=== PATIENT | female | born 1975 | race Caucasian/White ===

== ENCOUNTER → 2018-03-02 13:11 | Outpatient (CLI) | payer OTHER, MEDICAID, SELFPAY ==
--- NOTE | 2018-03-02 13:47 | DI.CT.S_ITS ---
PROCEDURE: CT CERVICAL SPINE WO CON INDICATIONS: neck pain and numbness in arm TECHNIQUE: Noncontrast 3 mm thick sections acquired from the skull base to the T4 level. Sagittal and coronal reformats were then constructed. For radiation dose reduction, the following was used: automated exposure control, adjustment of mA and/or kV according to patient size. COMPARISON: [facility], CR, CERVICAL SPINE 2 OR 3 VIEWS, 03/03/2010, 22:04. [facility], MR, C-SPINE W&WO CONTRAST, 07/15/2017, 7:51. FINDINGS: Image quality: Excellent. Bones: No fractures or dislocations. Visualized superior ribs are intact. Degenerative changes are seen throughout. Focal degenerative change is seen involving the left C1-C2 interface, as on series 4 image 9. There is irregularity seen in the anterior aspect of dens. Partial hemilaminectomy change can be seen on the left side at the C7 level. Soft tissues: Prevertebral soft tissues are normal in thickness. No paravertebral hematomas. No apical pneumothoraces. Mild attending groundglass opacity can be seen involving the lung apices. IMPRESSION: Irregularity is seen involving the anterior aspect of the dens. Differential diagnosis includes advanced degenerative change. There is postoperative change on the left at C7. The central canal is widely patent. Groundglass opacity can be seen within the visualized lung apices, in a dependent fashion. Differential diagnosis pulmonary edema and atypical infiltrate. Dictated by: Duarte Gibson M.D. on 03/02/2018 at 12:59 Approved by: Duarte Gibson M.D. on 03/02/2018 at 13:04
== END ==
PROVIDERS: Family Provider Physician Assistant; PCP Physician Assistant; Visit Provider Family Medicine
DX: M50.31 Other cervical disc degeneration, high cervical region (principal); R20.0 Anesthesia of skin; M25.60 Stiffness of unspecified joint, not elsewhere classified; R20.2 Paresthesia of skin
CPT/HCPCS: 72125

== ENCOUNTER → 2018-03-31 13:23 | Outpatient (CLI) | payer OTHER, MEDICAID, SELFPAY ==
--- NOTE | 2018-03-31 13:27 | DI.RAD.S_ITS ---
PROCEDURE: XR CHEST 2V INDICATIONS: Opacity TECHNIQUE: 2 views of the chest were acquired. COMPARISON: [facility], CT, CT CERVICAL SPINE WO CON, 03/02/2018, 13:16. [facility], CR, L-SPINE 2-3 VIEWS, 10/06/2012, 15:10. [facility], CR, CHEST 2 VIEW, 11/13/2015, 14:33. FINDINGS: Surgical changes and devices: None. Lungs and pleura: No pleural effusions or pneumothorax. Lungs are clear. No definite correlate to the groundglass opacities seen on the prior CT from 03/02/18 which may have represented dependent atelectasis. No pulmonary edema. Mediastinum: Mediastinal contours are normal. Heart size is normal. Bones and chest wall: No suspicious bony abnormalities. Soft tissues appear unremarkable. IMPRESSION: No acute disease. Dictated by: Tian Glass M.D. on 03/31/2018 at 16:28 Approved by: Tian Glass M.D. on 03/31/2018 at 16:30
== END ==
PROVIDERS: PCP Family Medicine; Visit Provider Family Medicine
DX: R91.8 Other nonspecific abnormal finding of lung field (principal)
CPT/HCPCS: 71046

== ENCOUNTER 2018-04-15 16:00 | Outpatient (RCR) | payer OTHER, MEDICAID, SELFPAY ==
--- NOTE | 2017-10-16 18:18 | PT.OTN ---
Addendum entered and electronically signed by Onelia Mena, PT 10/23/17 11:33: Transition note: On September 23, 2017 our therapy services consisting of Speech, Occupational, and Physical Therapy transitioned from the [employer] electronic documentation system to a new [employer] electronic documentation system.?? All documentation prior to September 23 can be found under [employer] saved data. From September 23 forward all medical record documentation will be in [employer]. Original Note: Current Diagnoses Radiculopathy, cervical region (10/16/17) Muscle weakness (generalized) (10/16/17) Abnormal posture (10/16/17) Physical Therapy Treatment Note PT-OP-A Visit Information Start: 10/16/17 14:28 Freq: Status: Active Protocol: Document 10/16/17 15:15 [facility] (Rec: 10/16/17 18:18 [facility] [email or web address]) Out-Patient Physical Therapy Visit Information Visit Information Visit Type Treatment Note Visit Note pt presents with walking boot on RLE; she fractured it on and had surgery by Dr. Geller 2 wks later. She states she will likely have a referral for her foot/ankle soon. Visit Start Time 14:30 Visit Stop Time 15:15 Total Visit Minutes 45 Visit Number 2 Number of RN PLACEMENT Visits 0 Evaluation Information Evaluation Date 09/04/17 PT-OP-C Subjective Start: 10/16/17 14:28 Freq: Status: Active Protocol: Document 10/16/17 15:15 [facility] (Rec: 10/16/17 18:18 [facility] [email or web address]) OP-PT Subjective Patient Comments Patient Comments Pt notes that her shoulder ( left) and neck have been bugging her more now that she is using crutches. Patient Reported Progress Worse PT-OP-H Neuro Start: 10/16/17 18:07 Freq: Status: Active Protocol: Document 10/16/17 15:15 [facility] (Rec: 10/16/17 18:18 [facility] [email or web address]) Sensation Evaluation Comments Summary Comments (+) tingling of LUE digits 1-3 with shoulder abduction with c/s side-bend R PT-OP-Q Treatments Start: 10/16/17 14:28 Freq: Status: Active Protocol: Document 10/16/17 15:15 [facility] (Rec: 10/16/17 18:18 [facility] [email or web address]) Therapeutic Exercises Supine Exercises 1 Supine Exercise Name Chin tuck (gentle) Side bilateral Sitting Exercises 1 Sitting Exercise Name Gentle median nerve glides Side left Manual Therapy Treatment Soft Tissue Mobilization 4 Body Location suboccipitals (bilateral) Mobilization Type Myofascial Release Intensity/Depth Moderate Body Position Supine 3 Body Location levator scapula Mobilization Type Sustained Pressure Intensity/Depth Moderate Body Position Supine Comments left 2 Body Location scalenes Mobilization Type Strumming Intensity/Depth Moderate Body Position Supine Comments left 1 Body Location upper trapezius (bilateral) Mobilization Type Sustained Pressure Intensity/Depth Moderate Body Position Supine Joint Mobilizations 1 Joint C5-C6 Direction side-glide to the R Grade II Body Position Supine Reps/Duration 16 min Comments stabilizing L shoulder; LUE in just under max tension of median nerve provocation PT-OP-R Modalities Start: 10/16/17 14:28 Freq: Status: Active Protocol: Document 10/16/17 15:15 [facility] (Rec: 10/16/17 18:18 [facility] [email or web address]) Hot Pack/Cold Pack Treatment Hot Pack Location cervical spine Patient Position Hooklying Treatment Duration (minutes) 10 Patient Tolerance Good Comments prior to manual therapy PT-OP-T Assessment and Plan Start: 10/16/17 14:28 Freq: Status: Active Protocol: Document 10/16/17 15:15 [facility] (Rec: 10/16/17 18:18 [facility] [email or web address]) Physical Therapy Assessment Assessment Summary Assessment Pt with (+) tingling of LUE digits 1-3 with shoulder abduction and side-bent R position (tension to median nerve), not aggravated by radial or ulnar nerve testing. Pt with improved shoulder abduction with combined side- bend R position of c/s from 92 degrees to 120 degrees prior to aggravation of median nerve , which indicates likely median nerve involvement in pain and good tolerance to treatment. Physical Therapy Plan Next Visit Focus/Plan Next Note Type Treatment Note Next Visit Plan cont. joint mobs as tolerated, STR, HEP for median nerve glide when able. Please Sign and Return: I have reviewed this Plan of Care and certify that the skilled therapy services above are required to meet the patient???s needs. Physician Signature Date Printed Name and Credentials Clinical Instructor Signature Printed Name and Credentials
--- NOTE | 2017-10-23 18:02 | PT.OTN ---
Current Diagnoses Radiculopathy, cervical region (10/23/17) Muscle weakness (generalized) (10/23/17) Abnormal posture (10/23/17) Physical Therapy Treatment Note PT-OP-A Visit Information Start: 10/16/17 14:28 Freq: Status: Active Protocol: Document 10/23/17 16:45 [facility] (Rec: 10/23/17 18:02 [facility] [email or web address]) Out-Patient Physical Therapy Visit Information Visit Information Visit Type Treatment Note Visit Start Time 16:00 Visit Stop Time 16:45 Total Visit Minutes 45 Visit Number 3 Number of JEWELRY CONSULTANT Visits 0 Evaluation Information Evaluation Date 09/04/17 PT-OP-C Subjective Start: 10/16/17 14:28 Freq: Status: Active Protocol: Document 10/23/17 16:45 [facility] (Rec: 10/23/17 18:02 [facility] [email or web address]) OP-PT Subjective Patient Comments Patient Comments Pt c/o L sided MCLAUGHLIN rated 10/10 prior to session, down to 5/10 after manual therapy and heat . PT-OP-H Neuro Start: 10/16/17 18:07 Freq: Status: Active Protocol: Document 10/16/17 15:15 RCC (Rec: 10/16/17 18:18 [facility] [email or web address]) Sensation Evaluation Comments Summary Comments (+) tingling of LUE digits 1-3 with shoulder abduction with c/s side-bend R PT-OP-Q Treatments Start: 10/16/17 14:28 Freq: Status: Active Protocol: Document 10/23/17 16:45 [facility] (Rec: 10/23/17 18:02 [facility] [email or web address]) Manual Therapy Treatment Soft Tissue Mobilization 4 Body Location suboccipitals (bilateral) Mobilization Type Myofascial Release Intensity/Depth Moderate Body Position Supine 3 Body Location levator scapula Mobilization Type Sustained Pressure Intensity/Depth Moderate Body Position Supine Comments bilateral 2 Body Location scalenes Mobilization Type Strumming Intensity/Depth Moderate Body Position Supine Comments bilateral 1 Body Location upper trapezius (bilateral) Mobilization Type Sustained Pressure Intensity/Depth Moderate Body Position Supine Joint Mobilizations 1 Joint C5-C6 Direction side-glide to the R Grade II Body Position Supine Reps/Duration 6 min Comments stabilizing L shoulder; LUE in just under max tension of median nerve provocation Manual Traction Cervical Body Position Hooklying Reps/Duration 30 sec on, 30 off for 10 min PT-OP-R Modalities Start: 10/16/17 14:28 Freq: Status: Active Protocol: Document 10/23/17 16:45 [facility] (Rec: 10/23/17 18:02 [facility] [email or web address]) Hot Pack/Cold Pack Treatment Hot Pack Location cervical spine Patient Position Hooklying Treatment Duration (minutes) 15 Patient Tolerance Good Comments prior to manual therapy PT-OP-T Assessment and Plan Start: 10/16/17 14:28 Freq: Status: Active Protocol: Document 10/23/17 16:45 RCC (Rec: 10/23/17 18:02 [facility] [email or web address]) Physical Therapy Assessment Assessment Summary Assessment Pt with L sided MCLAUGHLIN, likely due to tension of musculature, especially the suboccipitals. MCLAUGHLIN was decreased by 50% with manual therapy this session. Physical Therapy Plan Next Visit Focus/Plan Next Note Type Treatment Note Next Visit Plan median nerve glides for HEP if appropriate, continue chin tuck and add assisted head lift if able. Please Sign and Return: I have reviewed this Plan of Care and certify that the skilled therapy services above are required to meet the patient?s needs. Physician Signature Date Printed Name and Credentials Clinical Instructor Signature Printed Name and Credentials
--- NOTE | 2017-11-05 18:04 | PT.OTN ---
Current Diagnoses Stiffness of right ankle, not elsewhere classified (11/05/17) Radiculopathy, cervical region (11/05/17) Muscle weakness (generalized) (11/05/17) Other abnormalities of gait and mobility (11/05/17) Abnormal posture (11/05/17) Displaced fracture of medial malleolus of right tibia, subsequent encounter for closed fracture with routine healing (11/05/17) Displaced fracture of second metatarsal bone, right foot, subsequent encounter for fracture with routine healing (11/05/17) Displaced fracture of third metatarsal bone, right foot, subsequent encounter for fracture with routine healing (11/05/17) Physical Therapy Treatment Note PT-OP-A Visit Information Start: 10/16/17 14:28 Freq: Status: Active Protocol: Document 11/05/17 16:50 [facility] (Rec: 11/05/17 18:01 [facility] [email or web address]) Out-Patient Physical Therapy Visit Information Visit Information Visit Type Treatment Note Visit Note Pt with new referral from Dr. Ananya Geller for physical therapy (ROM, strength, WB status) s/p R ankle/foot ORIF R tibia, 2nd MT, 3rd MT fracture. Visit Start Time 14:00 Visit Stop Time 14:50 Total Visit Minutes 50 Visit Number 4 Number of LINEN WORKER Visits 0 Evaluation Information Evaluation Date 09/04/17 PT-OP-B Current Condition Start: 11/05/17 17:25 Freq: Status: Active Protocol: Document 11/05/17 16:50 [facility] (Rec: 11/05/17 18:01 [facility] [email or web address]) Current Condition History of Current Condition History of Current Condition Pt with new referral from Dr. Ananya Geller for physical therapy (ROM, strength, WB status) s/p R ankle/foot ORIF R tibia, 2nd MT, 3rd MT fracture. Orders for progressive WB of the R foot 25% per week in walking boot starting 10/30/2017. Pt is using single axillary crutch, notes that the pins were taken out 10/30/2017. She is not performing any ROM activities at this point. See chart for ongoing/current treatment for cervical spine as well. PT-OP-C Subjective Start: 10/16/17 14:28 Freq: Status: Active Protocol: Document 11/05/17 16:50 [facility] (Rec: 11/05/17 18:01 [facility] [email or web address]) OP-PT Subjective Patient Comments Patient Comments Pt reports her neck is a little better now only using a single crutch for ambulation. She was unable to sleep last night due to severe neck pain on the L side. PT-OP-G Mobility & Gait Start: 11/05/17 17:25 Freq: Status: Active Protocol: Document 11/05/17 16:50 [facility] (Rec: 11/05/17 18:01 [facility] [email or web address]) OP Mobility Evaluation Bed Mobility Rolling Indep. Supine to and from Sit Indep. OP Gait Assessment Comments Gait Comments L axillary crutch with walking boot. ER of the RLE, WB through heel. On objective testing with scale pt placing ~50% WB on the RLE (60 lbs). PT-OP-H Neuro Start: 10/16/17 18:07 Freq: Status: Active Protocol: Document 10/16/17 15:15 [facility] (Rec: 10/16/17 18:18 [facility] [email or web address]) Sensation Evaluation Comments Summary Comments (+) tingling of LUE digits 1-3 with shoulder abduction with c/s side-bend R PT-OP-K Range of Motion Start: 11/05/17 17:25 Freq: Status: Active Protocol: Document 11/05/17 16:50 [facility] (Rec: 11/05/17 18:01 [facility] [email or web address]) Ankle and Foot Goniometric Range of Motion Ankle and Foot Measured in Degrees Right Active Ankle/Foot ROM WFL No Dorsiflexion with Knee Extended 5 Plantarflexion 30 Inversion 10 Eversion 2 Ankle and Foot ROM Limitations Comments R AROM- DF and eversion are +5 and +2 (not able to get to neutral positioning- 5 deg of PF and 2 deg of inversion) PT-OP-M Strength Start: 11/05/17 17:25 Freq: Status: Active Protocol: Document 11/05/17 16:50 RCC (Rec: 11/05/17 18:01 [facility] [email or web address]) Hip Strength Hip Manual Muscle Testing Left Flexion (L2) 5 Normal External Rotation 4 Good Internal Rotation 4 Good Right Flexion (L2) 4 Good External Rotation 3+ Fair+ Internal Rotation 3+ Fair+ Knee Strength Knee Manual Muscle Testing Left Flexion (S2) 5 Normal Extension (L3) 5 Normal Right Flexion (S2) 3+ Fair+ Extension (L3) 4 Good Ankle/Foot Strength Ankle and Foot Manual Muscle Testing Left Dorsiflexion (L4) 5 Normal Plantarflexion (S1) 5 Normal Inversion 5 Normal Eversion (S1) 5 Normal Right Comments not tested secondary to recent surgery. PT-OP-Q Treatments Start: 10/16/17 14:28 Freq: Status: Active Protocol: Document 11/05/17 16:50 RCC (Rec: 11/05/17 18:01 [facility] [email or web address]) Therapeutic Exercises Supine Exercises 2 Supine Exercise Name R ankle ABCs Reps/Minutes 1 set Manual Therapy Treatment Soft Tissue Mobilization 4 Body Location suboccipitals (bilateral) Mobilization Type Myofascial Release Intensity/Depth Moderate Body Position Supine 2 Body Location scalenes Mobilization Type Strumming Intensity/Depth Moderate Body Position Supine Comments bilateral 1 Body Location upper trapezius (bilateral) Mobilization Type Sustained Pressure Intensity/Depth Moderate Body Position Supine Joint Mobilizations 1 Joint C5-C6 Direction side-glide to the R Grade II Body Position Supine Reps/Duration 6 min Comments stabilizing L shoulder; LUE in just under max tension of median nerve provocation Other Other Manual Treatments Ankle ROM, MMT- 10 min. PT-OP-R Modalities Start: 10/16/17 14:28 Freq: Status: Active Protocol: Document 11/05/17 16:50 RCC (Rec: 11/05/17 18:01 [facility] [email or web address]) Hot Pack/Cold Pack Treatment Hot Pack Location cervical spine Patient Position Hooklying Treatment Duration (minutes) 15 Patient Tolerance Good PT-OP-T Assessment and Plan Start: 10/16/17 14:28 Freq: Status: Active Protocol: Document 11/05/17 16:50 RCC (Rec: 11/05/17 18:01 [facility] [email or web address]) Physical Therapy Assessment Goals Eight Impairment Gait Workforce Services Representative Goal (LTG) Gait without an assistive device and no increase in pain for community ambulation prior to d/c. LTG Duration 12 weeks Seven Impairment L ankle ROM Short Term Goal (STG) DF 5 deg PF 40 deg Inversion 10 deg Eversion 10 deg STG Duration 6 weeks Workforce Services Representative Goal (LTG) DF 10 deg PF 50 deg Eversion 15 deg Inversion 30 deg LTG Duration 12 weeks Six Impairment LLE weakness Workforce Services Representative Goal (LTG) 5/5 hip flexion, ankle DF, PF, inversion, eversion, knee flexion and extension 4/5 hip ER and IR LTG Duration 12 weeks Five Impairment UE weakness Group Home Goal (LTG) 5/5 MMT to shoulder abduction, flexion and elbow extension LTG Duration 12 weeks Four Impairment cervical spine ROM Group Home Goal (LTG) Extension: 50 deg Flexion: 60 deg Rotation L and R: 60 deg SB L and R: 35 deg LTG Duration 12 weeks Three Impairment Neck Disability Index Workforce Services Representative Goal (LTG) 25% or less prior to d/c. LTG Duration 12 weeks Two Impairment Unable to climb ladders, vacuum or lift at work Group Home Goal (LTG) Pt will return to work related tasks with less than or equal to 3/10 pain in the cervical spine prior to d/c. LTG Duration 12 weeks One Impairment Neck pain 8/10 Short Term Goal (STG) 5/10 STG Duration 6 weeks Workforce Services Representative Goal (LTG) decreasing pain to 3/10 LTG Duration 12 weeks Assessment Summary Assessment Pt's neck still painful, and difficulty sleeping. Pt had increased cervical rotation to the L after manual therapy, but still restricted. Pt with new order from orthopedic surgeon s/p ORIF R ankle/foot, which will be added to this case and both the cervical spine and R ankle/foot will be addressed during this episode of care. Pt's neck pain had increased with use of crutches , but now is improving with pt using only one crutch on the L side, and able to maintain 50% or less WB in boot on the RLE without increased pain during walking. Pt is unable to work due to her R ankle fx and surgery, and is limiting her gait and overall functional independence ( unable to drive). Physical Therapy Plan Frequency and Duration Frequency of Treatment 2x/Week Duration of Treatment 12 weeks Plan of Care Start Date 11/05/17 Plan of Care End Date 01/28/18 Therapeutic Interventions Therapeutic Interventions Aquatic Therapy Balance Training Gait Training Home Exercise Program Joint Mobilizations Manual Therapy Neuromuscular Re-education Patient/Caregiver Education Self-Care/Home Management Soft Tissue Mobilization Taping Therapeutic Activities Therapeutic Exercises Modalities Cold Pack/Ice Massage Electric Stimulation Hot Packs Ultrasound Next Visit Focus/Plan Next Note Type Treatment Note Next Visit Plan cervical spine joint mobs ( side glide) and STR; toe curls , ankle ROM, gait training. Please Sign and Return: I have reviewed this Plan of Care and certify that the skilled therapy services above are required to meet the patient?s needs. Physician Signature Date Printed Name and Credentials Clinical Instructor Signature Printed Name and Credentials
--- NOTE | 2017-11-06 17:04 | PT.OPPOC ---
Current Diagnoses Stiffness of right ankle, not elsewhere classified (11/05/17) Radiculopathy, cervical region (11/05/17) Muscle weakness (generalized) (11/05/17) Other abnormalities of gait and mobility (11/05/17) Abnormal posture (11/05/17) Displaced fracture of medial malleolus of right tibia, subsequent encounter for closed fracture with routine healing (11/05/17) Displaced fracture of second metatarsal bone, right foot, subsequent encounter for fracture with routine healing (11/05/17) Displaced fracture of third metatarsal bone, right foot, subsequent encounter for fracture with routine healing (11/05/17) Provider Visit Care Team Role Provider Type Wendy Garza PA-C Family Provider Advanced Practioner Clinician Primary Care Provider Specialty: Family Practice Address: [address] [place] [address], [id number] Email: [email or web address] Ananya Geller MD Attending Provider Physician Specialty: Orthopedic Surgery Address: [address] [place] [address], [id number] Email: Plan Of Care PT-OP-T Assessment and Plan Start: 10/16/17 14:28 Freq: Status: Active Protocol: Document 11/05/17 16:50 RCC (Rec: 11/05/17 18:01 [facility] [email or web address]) Physical Therapy Assessment Goals Eight Impairment Gait Tool Grinder Operator External Goal (LTG) Gait without an assistive device and no increase in pain for community ambulation prior to d/c. LTG Duration 12 weeks Seven Impairment L ankle ROM Short Term Goal (STG) DF 5 deg PF 40 deg Inversion 10 deg Eversion 10 deg STG Duration 6 weeks Tool Grinder Operator External Goal (LTG) DF 10 deg PF 50 deg Eversion 15 deg Inversion 30 deg LTG Duration 12 weeks Six Impairment LLE weakness Tool Grinder Operator External Goal (LTG) 5/5 hip flexion, ankle DF, PF, inversion, eversion, knee flexion and extension 4/5 hip ER and IR LTG Duration 12 weeks Five Impairment UE weakness Long-Term Goal (LTG) 5/5 MMT to shoulder abduction, flexion and elbow extension LTG Duration 12 weeks Four Impairment cervical spine ROM Tool Grinder Operator External Goal (LTG) Extension: 50 deg Flexion: 60 deg Rotation L and R: 60 deg SB L and R: 35 deg LTG Duration 12 weeks Three Impairment Neck Disability Index Tool Grinder Operator External Goal (LTG) 25% or less prior to d/c. LTG Duration 12 weeks Two Impairment Unable to climb ladders, vacuum or lift at work Tool Grinder Operator External Goal (LTG) Pt will return to work related tasks with less than or equal to 3/10 pain in the cervical spine prior to d/c. LTG Duration 12 weeks One Impairment Neck pain 8/10 Short Term Goal (STG) 5/10 STG Duration 6 weeks Tool Grinder Operator External Goal (LTG) decreasing pain to 3/10 LTG Duration 12 weeks Assessment Summary Assessment Pt's neck still painful, and difficulty sleeping. Pt had increased cervical rotation to the L after manual therapy, but still restricted. Pt with new order from orthopedic surgeon s/p ORIF R ankle/foot, which will be added to this case and both the cervical spine and R ankle/foot will be addressed during this episode of care. Pt's neck pain had increased with use of crutches , but now is improving with pt using only one crutch on the L side, and able to maintain 50% or less WB in boot on the RLE without increased pain during walking. Pt is unable to work due to her R ankle fx and surgery, and is limiting her gait and overall functional independence ( unable to drive). Physical Therapy Plan Frequency and Duration Frequency of Treatment 2x/Week Duration of Treatment 12 weeks Plan of Care Start Date 11/05/17 Plan of Care End Date 01/28/18 Therapeutic Interventions Therapeutic Interventions Aquatic Therapy Balance Training Gait Training Home Exercise Program Joint Mobilizations Manual Therapy Neuromuscular Re-education Patient/Caregiver Education Self-Care/Home Management Soft Tissue Mobilization Taping Therapeutic Activities Therapeutic Exercises Modalities Cold Pack/Ice Massage Electric Stimulation Hot Packs Ultrasound Next Visit Focus/Plan Next Note Type Treatment Note Next Visit Plan cervical spine joint mobs ( side glide) and STR; toe curls , ankle ROM, gait training. Plan of Care Dates Plan of Care Start Date 11/05/17 Plan of Care End Date 01/28/18 Please Sign and Return: I have reviewed this Plan of Care and certify that the skilled therapy services above are required to meet the patient?s needs. Physician Signature Date Printed Name and Credentials Clinical Instructor Signature Printed Name and Credentials
--- NOTE | 2017-12-18 17:45 | PT.OTN ---
Current Diagnoses Radiculopathy, cervical region (12/18/17) Muscle weakness (generalized) (12/18/17) Abnormal posture (12/18/17) Physical Therapy Treatment Note PT-OP-A Visit Information Start: 10/16/17 14:28 Freq: Status: Active Protocol: Document 12/18/17 17:45 [facility] (Rec: 12/18/17 17:52 [facility] [email or web address]) Out-Patient Physical Therapy Visit Information Visit Information Visit Type Treatment Note Visit Start Time 16:45 Visit Stop Time 17:35 Total Visit Minutes 55 Visit Number 5 Number of RN PROVIDER RELATIONS Visits 0 Evaluation Information Evaluation Date 09/04/17 PT-OP-B Current Condition Start: 11/05/17 17:25 Freq: Status: Active Protocol: Document 11/05/17 16:50 [facility] (Rec: 11/05/17 18:01 [facility] [email or web address]) Current Condition History of Current Condition History of Current Condition Pt with new referral from Dr. Ananya Geller for physical therapy (ROM, strength, WB status) s/p R ankle/foot ORIF R tibia, 2nd MT, 3rd MT fracture. Orders for progressive WB of the R foot 25% per week in walking boot starting 10/30/2017. Pt is using single axillary crutch, notes that the pins were taken out 10/30/2017. She is not performing any ROM activities at this point. See chart for ongoing/current treatment for cervical spine as well. PT-OP-C Subjective Start: 10/16/17 14:28 Freq: Status: Active Protocol: Document 12/18/17 17:45 [facility] (Rec: 12/18/17 17:52 [facility] [email or web address]) OP-PT Subjective Patient Comments Patient Comments Pt reports her neck is a tiny bit better since discontinuing crutches. She still is having severe neck pains throughout the day. PT-OP-G Mobility & Gait Start: 11/05/17 17:25 Freq: Status: Active Protocol: Document 11/05/17 16:50 [facility] (Rec: 11/05/17 18:01 [facility] [email or web address]) OP Mobility Evaluation Bed Mobility Rolling Indep. Supine to and from Sit Indep. OP Gait Assessment Comments Gait Comments L axillary crutch with walking boot. ER of the RLE, WB through heel. On objective testing with scale pt placing ~50% WB on the RLE (60 lbs). PT-OP-H Neuro Start: 10/16/17 18:07 Freq: Status: Active Protocol: Document 10/16/17 15:15 [facility] (Rec: 10/16/17 18:18 [facility] [email or web address]) Sensation Evaluation Comments Summary Comments (+) tingling of LUE digits 1-3 with shoulder abduction with c/s side-bend R PT-OP-K Range of Motion Start: 11/05/17 17:25 Freq: Status: Active Protocol: Document 11/05/17 16:50 [facility] (Rec: 11/05/17 18:01 [facility] [email or web address]) Ankle and Foot Goniometric Range of Motion Ankle and Foot Measured in Degrees Right Active Ankle/Foot ROM WFL No Dorsiflexion with Knee Extended 5 Plantarflexion 30 Inversion 10 Eversion 2 Ankle and Foot ROM Limitations Comments R AROM- DF and eversion are +5 and +2 (not able to get to neutral positioning- 5 deg of PF and 2 deg of inversion) PT-OP-M Strength Start: 11/05/17 17:25 Freq: Status: Active Protocol: Document 11/05/17 16:50 [facility] (Rec: 11/05/17 18:01 [facility] [email or web address]) Hip Strength Hip Manual Muscle Testing Left Flexion (L2) 5 Normal External Rotation 4 Good Internal Rotation 4 Good Right Flexion (L2) 4 Good External Rotation 3+ Fair+ Internal Rotation 3+ Fair+ Knee Strength Knee Manual Muscle Testing Left Flexion (S2) 5 Normal Extension (L3) 5 Normal Right Flexion (S2) 3+ Fair+ Extension (L3) 4 Good Ankle/Foot Strength Ankle and Foot Manual Muscle Testing Left Dorsiflexion (L4) 5 Normal Plantarflexion (S1) 5 Normal Inversion 5 Normal Eversion (S1) 5 Normal Right Comments not tested secondary to recent surgery. PT-OP-Q Treatments Start: 10/16/17 14:28 Freq: Status: Active Protocol: Document 12/18/17 17:45 [facility] (Rec: 12/18/17 17:52 [facility] [email or web address]) Therapeutic Exercises Supine Exercises 3 Supine Exercise Name toe scrunches Side right Comments in boot Manual Therapy Treatment Soft Tissue Mobilization 4 Body Location suboccipitals (bilateral) Mobilization Type Myofascial Release Intensity/Depth Moderate Body Position Supine 3 Body Location levator scapula Mobilization Type Sustained Pressure Intensity/Depth Moderate Body Position Supine Comments bilateral 2 Body Location scalenes Mobilization Type Strumming Intensity/Depth Moderate Body Position Supine Comments bilateral 1 Body Location upper trapezius (bilateral) Mobilization Type Sustained Pressure Intensity/Depth Moderate Body Position Supine Joint Mobilizations 1 Joint C3-C6 Direction side-glide to the R Grade III Body Position Supine Reps/Duration 12 min Comments stabilizing L shoulder; LUE in just under max tension of median nerve provocation Manual Traction Cervical Body Position Hooklying Reps/Duration 30 sec on, 30 off for 10 min PT-OP-R Modalities Start: 10/16/17 14:28 Freq: Status: Active Protocol: Document 12/18/17 17:45 [facility] (Rec: 12/18/17 17:52 [facility] [email or web address]) Hot Pack/Cold Pack Treatment Hot Pack Location cervical spine Patient Position Hooklying Treatment Duration (minutes) 15 Patient Tolerance Good Comments post-manual therapy PT-OP-T Assessment and Plan Start: 10/16/17 14:28 Freq: Status: Active Protocol: Document 12/18/17 17:45 [facility] (Rec: 12/18/17 17:52 [facility] [email or web address]) Physical Therapy Assessment Assessment Summary Assessment Pt with improved cervical spine mobility with extensive STR and manual therapy. Pt still with inconsistent fluidity of joint motion of the neck, likely degenerative. She is in a walking boot and tolerating ambulation well, but yet to get her post-op shoe from [facility]. Physical Therapy Plan Frequency and Duration Frequency of Treatment 2x/Week Duration of Treatment 12 weeks Plan of Care Start Date 11/05/17 Plan of Care End Date 01/28/18 Next Visit Focus/Plan Next Note Type Treatment Note Next Visit Plan c/s ROM and STR, manual traction->trial mechanical traction.
--- NOTE | 2018-01-14 16:00 | PT.OTN ---
Current Diagnoses Radiculopathy, cervical region (01/14/18) Muscle weakness (generalized) (01/14/18) Abnormal posture (01/14/18) Physical Therapy Treatment Note PT-OP-A Visit Information Start: 10/16/17 14:28 Freq: Status: Active Protocol: Document 01/14/18 16:00 [facility] (Rec: 01/14/18 17:08 [facility] [email or web address]) Out-Patient Physical Therapy Visit Information Visit Information Visit Type Treatment Note Visit Start Time 15:15 Visit Stop Time 16:15 Total Visit Minutes 60 Visit Number 6 Number of BROACH TROUBLE SHOOTER Visits 0 Evaluation Information Evaluation Date 09/04/17 PT-OP-B Current Condition Start: 11/05/17 17:25 Freq: Status: Active Protocol: Document 11/05/17 16:50 [facility] (Rec: 11/05/17 18:01 [facility] [email or web address]) Current Condition History of Current Condition History of Current Condition Pt with new referral from Dr. Ananya Geller for physical therapy (ROM, strength, WB status) s/p R ankle/foot ORIF R tibia, 2nd MT, 3rd MT fracture. Orders for progressive WB of the R foot 25% per week in walking boot starting 10/30/2017. Pt is using single axillary crutch, notes that the pins were taken out 10/30/2017. She is not performing any ROM activities at this point. See chart for ongoing/current treatment for cervical spine as well. PT-OP-C Subjective Start: 10/16/17 14:28 Freq: Status: Active Protocol: Document 01/14/18 16:00 [facility] (Rec: 01/14/18 17:08 [facility] [email or web address]) OP-PT Subjective Patient Comments Patient Comments Pt d/c the walking boot 4 days ago. She notes that even doing her chin tucks take a lot of effort and if she does them wrong she has increased pain. PT-OP-G Mobility & Gait Start: 11/05/17 17:25 Freq: Status: Active Protocol: Document 11/05/17 16:50 [facility] (Rec: 11/05/17 18:01 [facility] [email or web address]) OP Mobility Evaluation Bed Mobility Rolling Indep. Supine to and from Sit Indep. OP Gait Assessment Comments Gait Comments L axillary crutch with walking boot. ER of the RLE, WB through heel. On objective testing with scale pt placing ~50% WB on the RLE (60 lbs). PT-OP-H Neuro Start: 10/16/17 18:07 Freq: Status: Active Protocol: Document 10/16/17 15:15 [facility] (Rec: 10/16/17 18:18 [facility] [email or web address]) Sensation Evaluation Comments Summary Comments (+) tingling of LUE digits 1-3 with shoulder abduction with c/s side-bend R PT-OP-K Range of Motion Start: 11/05/17 17:25 Freq: Status: Active Protocol: Document 11/05/17 16:50 [facility] (Rec: 11/05/17 18:01 [facility] [email or web address]) Ankle and Foot Goniometric Range of Motion Ankle and Foot Measured in Degrees Right Active Ankle/Foot ROM WFL No Dorsiflexion with Knee Extended 5 Plantarflexion 30 Inversion 10 Eversion 2 Ankle and Foot ROM Limitations Comments R AROM- DF and eversion are +5 and +2 (not able to get to neutral positioning- 5 deg of PF and 2 deg of inversion) PT-OP-M Strength Start: 11/05/17 17:25 Freq: Status: Active Protocol: Document 11/05/17 16:50 [facility] (Rec: 11/05/17 18:01 [facility] [email or web address]) Hip Strength Hip Manual Muscle Testing Left Flexion (L2) 5 Normal External Rotation 4 Good Internal Rotation 4 Good Right Flexion (L2) 4 Good External Rotation 3+ Fair+ Internal Rotation 3+ Fair+ Knee Strength Knee Manual Muscle Testing Left Flexion (S2) 5 Normal Extension (L3) 5 Normal Right Flexion (S2) 3+ Fair+ Extension (L3) 4 Good Ankle/Foot Strength Ankle and Foot Manual Muscle Testing Left Dorsiflexion (L4) 5 Normal Plantarflexion (S1) 5 Normal Inversion 5 Normal Eversion (S1) 5 Normal Right Comments not tested secondary to recent surgery. PT-OP-Q Treatments Start: 10/16/17 14:28 Freq: Status: Active Protocol: Document 01/14/18 16:00 [facility] (Rec: 01/14/18 17:08 [facility] [email or web address]) Therapeutic Exercises Supine Exercises 4 Supine Exercise Name gastroc/soleus stretch Side right Equipment Used bed sheet 2 Supine Exercise Name R ankle ABCs Reps/Minutes 1 set 1 Supine Exercise Name Chin tuck (gentle) Side bilateral Manual Therapy Treatment Soft Tissue Mobilization 5 Body Location L SCM Mobilization Type Strumming Intensity/Depth Superficial Body Position Supine 4 Body Location suboccipitals (bilateral) Mobilization Type Myofascial Release Intensity/Depth Moderate Body Position Supine 2 Body Location scalenes Mobilization Type Strumming Intensity/Depth Moderate Body Position Supine Comments bilateral 1 Body Location upper trapezius (bilateral) Mobilization Type Sustained Pressure Intensity/Depth Moderate Body Position Supine Joint Mobilizations 1 Joint C3-C6 Direction side-glide to the R Grade III Body Position Supine Reps/Duration 10 min Comments stabilizing L shoulder; LUE in just under max tension of median nerve provocation Manual Techniques 1 Type R ankle- DF, PF, Inv, Eversion Comments ROM x10 each direction PT-OP-R Modalities Start: 10/16/17 14:28 Freq: Status: Active Protocol: Document 01/14/18 16:00 [facility] (Rec: 01/14/18 17:08 [facility] [email or web address]) Hot Pack/Cold Pack Treatment Hot Pack Location cervical spine Patient Position Hooklying Treatment Duration (minutes) 15 Patient Tolerance Good Comments post-manual therapy PT-OP-T Assessment and Plan Start: 10/16/17 14:28 Freq: Status: Active Protocol: Document 01/14/18 16:00 [facility] (Rec: 01/14/18 17:08 [facility] [email or web address]) Physical Therapy Assessment Assessment Summary Assessment Pt's R ankle/foot appears to be healing as expected s/p ORIF. Her neck continues to be painful, with restriction throughout the cervical spine and limited in activity due to pain. Physical Therapy Plan Frequency and Duration Frequency of Treatment 2x/Week Duration of Treatment 12 weeks Plan of Care Start Date 11/05/17 Plan of Care End Date 01/28/18 Next Visit Focus/Plan Next Note Type Treatment Note Next Visit Plan manual traction (due to pain level, mechanical traction held), advance R foot/ankle ROM and strength, gait.
--- NOTE | 2018-02-19 16:45 | PT.OTN ---
Current Diagnoses Radiculopathy, cervical region (02/19/18) Muscle weakness (generalized) (02/19/18) Abnormal posture (02/19/18) Physical Therapy Treatment Note PT-OP-A Visit Information Start: 10/16/17 14:28 Freq: Status: Active Protocol: Document 02/19/18 16:45 [facility] (Rec: 02/21/18 12:31 [facility] [email or web address]) Out-Patient Physical Therapy Visit Information Visit Information Visit Type Treatment Note Visit Start Time 16:00 Visit Stop Time 16:50 Total Visit Minutes 50 Visit Number 7 Number of PARTY PLAN SALES CONSULTANT Visits 0 Evaluation Information Evaluation Date 09/04/17 PT-OP-B Current Condition Start: 11/05/17 17:25 Freq: Status: Active Protocol: Document 11/05/17 16:50 [facility] (Rec: 11/05/17 18:01 [facility] [email or web address]) Current Condition History of Current Condition History of Current Condition Pt with new referral from Dr. Ananya Geller for physical therapy (ROM, strength, WB status) s/p R ankle/foot ORIF R tibia, 2nd MT, 3rd MT fracture. Orders for progressive WB of the R foot 25% per week in walking boot starting 10/30/2017. Pt is using single axillary crutch, notes that the pins were taken out 10/30/2017. She is not performing any ROM activities at this point. See chart for ongoing/current treatment for cervical spine as well. PT-OP-C Subjective Start: 10/16/17 14:28 Freq: Status: Active Protocol: Document 02/19/18 16:45 [facility] (Rec: 02/21/18 12:31 [facility] [email or web address]) OP-PT Subjective Patient Comments Patient Comments Pt reports her neck pain is 9/ 10 today, has been worse over the past week. Her R ankle is doing better, still stiff. She is not yet back to work. OP-PT Pain Assessment Location Bilateral Neck Intensity 9 Scale Used Numeric (1 - 10) PT-OP-F Manual Assessment Start: 11/05/17 17:25 Freq: Status: Active Protocol: Document 02/19/18 16:45 [facility] (Rec: 02/21/18 12:31 [facility] [email or web address]) Manual Assessments Soft Tissue Assessment Soft Tissue Mobility Assessment Moderate to severe tone in bilaeral SCM, scalenes, UT, suboccipitals, and levator PT-OP-G Mobility & Gait Start: 11/05/17 17:25 Freq: Status: Active Protocol: Document 02/19/18 16:45 [facility] (Rec: 02/21/18 12:31 [facility] [email or web address]) OP Gait Assessment Gait Deviations General Gait Pattern Antalgic Decreased Stride Length Decreased Feet Clearance PT-OP-H Neuro Start: 10/16/17 18:07 Freq: Status: Active Protocol: Document 10/16/17 15:15 [facility] (Rec: 10/16/17 18:18 [facility] [email or web address]) Sensation Evaluation Comments Summary Comments (+) tingling of LUE digits 1-3 with shoulder abduction with c/s side-bend R PT-OP-K Range of Motion Start: 11/05/17 17:25 Freq: Status: Active Protocol: Document 02/19/18 16:45 [facility] (Rec: 02/21/18 12:31 [facility] [email or web address]) Cervical Spine Range of Motion Cervical Spine Active Degrees Rotation Left 20 Rotation Right 22 Ankle and Foot Goniometric Range of Motion Ankle and Foot Measured in Degrees Right Active Ankle/Foot ROM WFL No Dorsiflexion with Knee Extended 8 Plantarflexion 40 Inversion 20 Eversion 10 PT-OP-M Strength Start: 11/05/17 17:25 Freq: Status: Active Protocol: Document 02/19/18 16:45 [facility] (Rec: 02/21/18 12:31 [facility] [email or web address]) Ankle/Foot Strength Ankle and Foot Manual Muscle Testing Right Dorsiflexion (L4) 3+ Fair+ Plantarflexion (S1) 2+ Poor+ Inversion 3+ Fair+ Eversion (S1) 3+ Fair+ PT-OP-Q Treatments Start: 10/16/17 14:28 Freq: Status: Active Protocol: Document 02/19/18 16:45 [facility] (Rec: 02/21/18 12:31 [facility] [email or web address]) Therapeutic Exercises Supine Exercises 2 Supine Exercise Name R ankle ABCs Reps/Minutes 1 set 1 Supine Exercise Name Chin tuck (gentle) Side bilateral Manual Therapy Treatment Soft Tissue Mobilization 4 Body Location suboccipitals (bilateral) Mobilization Type Myofascial Release Intensity/Depth Moderate Body Position Supine 3 Body Location levator scapula Mobilization Type Sustained Pressure Intensity/Depth Moderate Body Position Supine Comments bilateral 2 Body Location scalenes Mobilization Type Strumming Intensity/Depth Moderate Body Position Supine Comments bilateral 1 Body Location upper trapezius (bilateral) Mobilization Type Sustained Pressure Intensity/Depth Moderate Body Position Supine Manual Techniques 1 Type R ankle- DF, PF, Inv, Eversion Comments ROM x10 each direction Other Other Manual Treatments ankle and neck ROM, LE MMT PT-OP-R Modalities Start: 10/16/17 14:28 Freq: Status: Active Protocol: Document 02/19/18 16:45 [facility] (Rec: 02/21/18 12:31 [facility] [email or web address]) Hot Pack/Cold Pack Treatment Hot Pack Location cervical spine Patient Position Hooklying Treatment Duration (minutes) 15 Patient Tolerance Good Comments post-manual therapy PT-OP-T Assessment and Plan Start: 10/16/17 14:28 Freq: Status: Active Protocol: Document 02/19/18 16:45 [facility] (Rec: 02/21/18 12:31 [facility] [email or web address]) Physical Therapy Assessment Goals Eight Impairment Gait Rolling Machine Operator Automatic Goal (LTG) Gait without an assistive device and no increase in pain for community ambulation prior to d/c. *02/19/18- pt ambulating without device LTG Duration 8 weeks Seven Impairment L ankle ROM Short Term Goal (STG) DF 5 deg PF 40 deg Inversion 10 deg Eversion 10 deg *achieved 02/19/18 [facility] Goal (LTG) DF 10 deg PF 50 deg Eversion 15 deg Inversion 30 deg LTG Duration 8 weeks Six Impairment LLE weakness [facility] Goal (LTG) 5/5 hip flexion, ankle DF, PF, inversion, eversion, knee flexion and extension 4/5 hip ER and IR * not achieved 02/19/18 LTG Duration 8 weeks Five Impairment UE weakness [facility] Goal (LTG) 5/5 MMT to shoulder abduction, flexion and elbow extension LTG Duration 8 weeks Four Impairment cervical spine ROM [facility] Goal (LTG) Extension: 50 deg Flexion: 60 deg Rotation L and R: 60 deg SB L and R: 35 deg *some progress 02/19/18 LTG Duration 8 weeks Three Impairment Neck Disability Index Rolling Machine Operator Automatic Goal (LTG) 25% or less prior to d/c. LTG Duration 8 weeks Two Impairment Unable to climb ladders, vacuum or lift at work Rolling Machine Operator Automatic Goal (LTG) Pt will return to work related tasks with less than or equal to 3/10 pain in the cervical spine prior to d/c. * unable 02/19/18 LTG Duration 8 weeks One Impairment Neck pain 02/02 Short Term Goal (STG) 5/10 STG Duration 4 weeks Rolling Machine Operator Automatic Goal (LTG) decreasing pain to 3/10 LTG Duration 8 weeks Progress Towards Goals Progress Towards Goals Slow Progress due to Activity Tolerance Progress Comments Pt appears to be making good progress s/p R ankle/foot ORIF , but her neck continues to be highly painful and limits her activity tolerance and mobility. Assessment Summary Assessment Pt's ROM of the R ankle is improving overall as expected. She still demonstrates impaired gait and LE strength and ROM. Pt's neck is still concerning due to severity of pain and the amount of tension noted in major cervcial musculature, and pt hoping to have a CT soon. Pt can tolerate gentle activity only of the upper body due to neck pain. Traction decreases pain, and pt may benefit from home traction unit if tolerable for pain control. Pt requires ongoing physical therapy to progress both her R ankle and neck ROM, UE and LE strength, and continued progress toward prior level of function and return to work. Physical Therapy Plan Frequency and Duration Frequency of Treatment 2x/Week Duration of Treatment 8 weeks Plan of Care Start Date 02/19/18 Plan of Care End Date 04/16/18 Therapeutic Interventions Therapeutic Interventions Aquatic Therapy Balance Training Gait Training Home Exercise Program Joint Mobilizations Manual Therapy Neuromuscular Re-education Patient/Caregiver Education Self-Care/Home Management Soft Tissue Mobilization Taping Therapeutic Activities Therapeutic Exercises Modalities Cold Pack/Ice Massage Electric Stimulation Hot Packs Ultrasound Next Visit Focus/Plan Next Note Type Treatment Note Next Visit Plan attempt mechanical traction trial if able, progress ROM of neck and ankle, 4 way ankle strengthening.
--- NOTE | 2018-02-19 16:45 | PT.OPPOC ---
Current Diagnoses Radiculopathy, cervical region (02/19/18) Muscle weakness (generalized) (02/19/18) Abnormal posture (02/19/18) Provider Visit Care Team Role Provider Type Wendy Garza PA-C Family Provider Advanced Supplier Relationship Director Primary Care Provider Specialty: Family Practice Address: [address] [place] [address], [id number] Email: [email or web address] Ananya Geller MD Attending Provider Physician Specialty: Orthopedic Surgery Address: [address] [place] [address], [id number] Email: Plan Of Care PT-OP-T Assessment and Plan Start: 10/16/17 14:28 Freq: Status: Active Protocol: Document 02/19/18 16:45 [facility] (Rec: 02/21/18 12:31 [facility] [email or web address]) Physical Therapy Assessment Goals Eight Impairment Gait [facility] Goal (LTG) Gait without an assistive device and no increase in pain for community ambulation prior to d/c. *02/19/18- pt ambulating without device LTG Duration 8 weeks Seven Impairment L ankle ROM Short Term Goal (STG) DF 5 deg PF 40 deg Inversion 10 deg Eversion 10 deg *achieved 02/19/18 [employer] Dec[employer] Goal (LTG) DF 10 deg PF 50 deg Eversion 15 deg Inversion 30 deg LTG Duration 8 weeks Six Impairment LLE weakness [employer] Goal (LTG) 5/5 hip flexion, ankle DF, PF, inversion, eversion, knee flexion and extension 4/5 hip ER and IR * not achieved 02/19/18 LTG Duration 8 weeks Five Impairment UE weakness [facility] Goal (LTG) 5/5 MMT to shoulder abduction, flexion and elbow extension LTG Duration 8 weeks Four Impairment cervical spine ROM [facility] Goal (LTG) Extension: 50 deg Flexion: 60 deg Rotation L and R: 60 deg SB L and R: 35 deg *some progress 02/19/18 LTG Duration 8 weeks Three Impairment Neck Disability Index [employer] Goal (LTG) 25% or less prior to d/c. LTG Duration 8 weeks Two Impairment Unable to climb ladders, vacuum or lift at work [employer] Dec[employer]ator Goal (LTG) Pt will return to work related tasks with less than or equal to 3/10 pain in the cervical spine prior to d/c. * unable 02/19/18 LTG Duration 8 weeks One Impairment Neck pain 9/10 Short Term Goal (STG) 5/10 STG Duration 4 weeks [facility] Goal (LTG) decreasing pain to 3/10 LTG Duration 8 weeks Progress Towards Goals Progress Towards Goals Slow Progress due to Activity Tolerance Progress Comments Pt appears to be making good progress s/p R ankle/foot ORIF , but her neck continues to be highly painful and limits her activity tolerance and mobility. Assessment Summary Assessment Pt's ROM of the R ankle is improving overall as expected. She still demonstrates impaired gait and LE strength and ROM. Pt's neck is still concerning due to severity of pain and the amount of tension noted in major cervcial musculature, and pt hoping to have a CT soon. Pt can tolerate gentle activity only of the upper body due to neck pain. Traction decreases pain, and pt may benefit from home traction unit if tolerable for pain control. Pt requires ongoing physical therapy to progress both her R ankle and neck ROM, UE and LE strength, and continued progress toward prior level of function and return to work. Physical Therapy Plan Frequency and Duration Frequency of Treatment 2x/Week Duration of Treatment 8 weeks Plan of Care Start Date 02/19/18 Plan of Care End Date 04/16/18 Therapeutic Interventions Therapeutic Interventions Aquatic Therapy Balance Training Gait Training Home Exercise Program Joint Mobilizations Manual Therapy Neuromuscular Re-education Patient/Caregiver Education Self-Care/Home Management Soft Tissue Mobilization Taping Therapeutic Activities Therapeutic Exercises Modalities Cold Pack/Ice Massage Electric Stimulation Hot Packs Ultrasound Next Visit Focus/Plan Next Note Type Treatment Note Next Visit Plan attempt mechanical traction trial if able, progress ROM of neck and ankle, 4 way ankle strengthening. Plan of Care Dates Plan of Care Start Date 02/19/18 Plan of Care End Date 04/16/18 Please Sign and Return: I have reviewed this Plan of Care and certify that the skilled therapy services above are required to meet the patient?s needs. Physician Signature Date Printed Name and Credentials Clinical Instructor Signature Printed Name and Credentials
--- NOTE | 2018-04-15 16:40 | PT.OTN ---
Current Diagnoses Radiculopathy, cervical region (04/15/18) Muscle weakness (generalized) (04/15/18) Abnormal posture (04/15/18) Physical Therapy Treatment Note PT-OP-A Visit Information Start: 10/16/17 14:28 Freq: Status: Active Protocol: Document 04/15/18 16:40 RCC (Rec: 04/15/18 17:10 RCC [email or web address]) Out-Patient Physical Therapy Visit Information Visit Information Visit Type Treatment Note Visit Start Time 16:00 Visit Stop Time 16:40 Total Visit Minutes 40 Visit Number 8 Number of BARBER OR BEAUTY SHOP MANAGER Visits 0 Evaluation Information Evaluation Date 09/04/17 PT-OP-B Current Condition Start: 11/05/17 17:25 Freq: Status: Active Protocol: Document 11/05/17 16:50 RCC (Rec: 11/05/17 18:01 RCC [email or web address]) Current Condition History of Current Condition History of Current Condition Pt with new referral from Dr. Ananya Geller for physical therapy (ROM, strength, WB status) s/p R ankle/foot ORIF R tibia, 2nd MT, 3rd MT fracture. Orders for progressive WB of the R foot 25% per week in walking boot starting 10/30/2017. Pt is using single axillary crutch, notes that the pins were taken out 10/30/2017. She is not performing any ROM activities at this point. See chart for ongoing/current treatment for cervical spine as well. PT-OP-C Subjective Start: 10/16/17 14:28 Freq: Status: Active Protocol: Document 04/15/18 16:40 RCC (Rec: 04/15/18 17:10 RCC [email or web address]) OP-PT Subjective Patient Comments Patient Comments Pt with new orders from Dr. Dario Freed (spine surgery ), to perform TENS to the cervical spine. Pt states that after the treatment, she has less pain and was relaxed after electrical stimulation. PT-OP-F Manual Assessment Start: 11/05/17 17:25 Freq: Status: Active Protocol: Document 04/15/18 16:40 RCC (Rec: 04/15/18 17:10 RCC [email or web address]) Manual Assessments Soft Tissue Assessment Soft Tissue Mobility Assessment Severe tone to L suboccipitals PT-OP-G Mobility & Gait Start: 11/05/17 17:25 Freq: Status: Active Protocol: Document 02/19/18 16:45 RCC (Rec: 02/21/18 12:31 RCC [email or web address]) OP Gait Assessment Gait Deviations General Gait Pattern Antalgic Decreased Stride Length Decreased Feet Clearance PT-OP-H Neuro Start: 10/16/17 18:07 Freq: Status: Active Protocol: Document 10/16/17 15:15 RCC (Rec: 10/16/17 18:18 RCC [email or web address]) Sensation Evaluation Comments Summary Comments (+) tingling of LUE digits 1-3 with shoulder abduction with c/s side-bend R PT-OP-K Range of Motion Start: 11/05/17 17:25 Freq: Status: Active Protocol: Document 04/15/18 16:40 RCC (Rec: 04/15/18 17:10 RCC [email or web address]) Cervical Spine Range of Motion Cervical Spine Active Degrees Rotation Left 20 Rotation Right 22 PT-OP-M Strength Start: 11/05/17 17:25 Freq: Status: Active Protocol: Document 02/19/18 16:45 RCC (Rec: 02/21/18 12:31 RCC [email or web address]) Ankle/Foot Strength Ankle and Foot Manual Muscle Testing Right Dorsiflexion (L4) 3+ Fair+ Plantarflexion (S1) 2+ Poor+ Inversion 3+ Fair+ Eversion (S1) 3+ Fair+ PT-OP-Q Treatments Start: 10/16/17 14:28 Freq: Status: Active Protocol: Document 04/15/18 16:40 RCC (Rec: 04/15/18 17:10 RCC [email or web address]) Therapeutic Activity Therapeutic Activity 1 Name discussed continuation of HEP and postural activities Comments also discussed in detail where TENS units can be obtained, how to use them, contraindications, amount/ frequency/duration, set up of TENS for home use. PT-OP-R Modalities Start: 10/16/17 14:28 Freq: Status: Active Protocol: Document 04/15/18 16:40 RCC (Rec: 04/15/18 17:10 RCC [email or web address]) Electric Stimulation Electric Stimulation Interferential Current (IFC) Body Location cervical Duration (Minutes) 15 Intensity 12 PT-OP-T Assessment and Plan Start: 10/16/17 14:28 Freq: Status: Active Protocol: Document 04/15/18 16:40 RCC (Rec: 04/15/18 17:10 RCC [email or web address]) Physical Therapy Assessment Goals Eight Impairment Gait Jail Goal (LTG) Gait without an assistive device and no increase in pain for community ambulation prior to d/c. *02/19/18- pt ambulating without device LTG Duration achieved Seven Impairment L ankle ROM Short Term Goal (STG) DF 5 deg PF 40 deg Inversion 10 deg Eversion 10 deg *achieved 02/19/18 Field Party Manager Goal (LTG) DF 10 deg PF 50 deg Eversion 15 deg Inversion 30 deg LTG Duration 8 weeks Six Impairment LLE weakness Jail Goal (LTG) 5/5 hip flexion, ankle DF, PF, inversion, eversion, knee flexion and extension 4/5 hip ER and IR * not achieved 02/19/18 LTG Duration 8 weeks Five Impairment UE weakness Jail Goal (LTG) 5/5 MMT to shoulder abduction, flexion and elbow extension LTG Duration 8 weeks Four Impairment cervical spine ROM Jail Goal (LTG) Extension: 50 deg Flexion: 60 deg Rotation L and R: 60 deg SB L and R: 35 deg *some progress 02/19/18 (no change since 02/19/18) LTG Duration 8 weeks Three Impairment Neck Disability Index Field Party Manager Goal (LTG) 25% or less prior to d/c. LTG Duration 8 weeks Two Impairment Unable to climb ladders, vacuum or lift at work Field Party Manager Goal (LTG) Pt will return to work related tasks with less than or equal to 3/10 pain in the cervical spine prior to d/c. * unable 02/19/18 LTG Duration 8 weeks One Impairment Neck pain 9/10 Short Term Goal (STG) 5/10 STG Duration 4 weeks Jail Goal (LTG) decreasing pain to 3/10 LTG Duration 8 weeks Progress Towards Goals Progress Comments no significant changes since last assessment on 02/19/18- pt had not participated in any other PT sessions since that time Assessment Summary Assessment Pt was trialed with electrical stimulation today without other modalities (ice or heat) and noted decrease in pain after treatment. Pt would benefit from a home TENS unit to assist with pain management . Overall, pt attended 8 physical therapy sessions from 09/04/17-04/15/18 with multiple disruptions during episode of care (initially coming for neck pain, then had an ankle fx with ORIF which took time to heal and pt could not attend PT for an extended period of time). Pt has reached the point of exhausting her allowed dates to attend physical therapy at this time (end of insurance authorization is 04/18/18). Pt cannot be seen at this time due to expiration of her insurance. No significant changes for the better noted since 02/19/18, then again, pt did not participate in physical therapy since that date. Pt was educated extensively on the use of TENS units at home. At this time, pt will be discharged due to limitations with her insurance coverage. Expect pt to follow up with PCP and discuss further options, including but not limited to return to physical therapy when able to attend on a more frequent and consistent basis at the start of 2019 (if medically necessary). Physical Therapy Plan Discharge Physical Therapy Discharge Reasons No Longer Attending PT Discharge Comments insurance visit limitations ( no coverage for PT beyond ).
== END 2018-05-11 09:37 ==
LOC: PHYS 16:00
PROVIDERS: Family Provider Physician Assistant; PCP Physician Assistant; Visit Provider Orthopaedic Surgery Foot and Ankle Surgery
DX: M54.12 Radiculopathy, cervical region (principal); M62.81 Muscle weakness (generalized); R29.3 Abnormal posture
CPT/HCPCS: 97010; 97014; 97110; 97140; 97530; G0283

== ENCOUNTER 2018-10-27 15:22 | Emergency (ER) | payer OTHER, MEDICAID, SELFPAY ==
[2018-10-27 15:27] VITALS: BP 160/98; PULSE 93; RESP 20; TEMP 36.4; O2SAT 96
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
--- NOTE | 2018-10-27 17:03 | PC.NURSE ---
C-collar removed per Madeline Gutierres
[2018-10-27 17:19] VITALS: BP 114/73; PULSE 63; RESP 18; TEMP 36.2
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
== END 2018-10-27 18:10 | disposition home or self-care (01) ==
PROVIDERS: Emergency Provider Nurse Practitioner Family; Family Provider Family Medicine; PCP Family Medicine
DX: S16.1XXA Strain of muscle, fascia and tendon at neck level, initial encounter (principal); S13.4XXA Sprain of ligaments of cervical spine, initial encounter; V43.62XA Car passenger injured in collision with other type car in traffic accident, initial encounter
CPT/HCPCS: 70450; 72125; 99282; 99284

== ENCOUNTER 2018-11-25 14:30 | Outpatient (RCR) | payer OTHER, MEDICAID, SELFPAY ==
--- NOTE | 2018-09-09 16:00 | PT.OIE ---
Current Diagnoses Cervicalgia (09/09/18) Past Medical History (Last Reviewed 06/09/18 @ 11:33 by Ana Hensley DO) Cubital tunnel syndrome (Acute Unknown) Allergic rhinitis (Chronic Unknown) Anxiety (Chronic Unknown) GERD (gastroesophageal reflux disease) (Chronic Unknown) Herpes (Chronic 2010) Scoliosis (Chronic Unknown) Cervical cancer (Resolved Unknown) Endometriosis (Resolved 2003) Shoulder pain (Resolved 2013) Past Surgical History (Last Reviewed 01/02/18 @ 14:29 by Ana Hensley DO) S/P hemilaminotomy (Resolved 04/2016) Status post hysterectomy Provider Visit Care Team Role Provider Type Ana Hensley DO Attending Provider Physician Family Provider Primary Care Provider Specialty: Family Practice Address: [address] [place] [address] Email: [email or web address] Physical Therapy Initial Evaluation PT-OP-A Visit Information Start: 09/09/18 13:48 Freq: Status: Active Protocol: Document 09/09/18 14:35 BS (Rec: 09/10/18 16:15 BS [email or web address]) Out-Patient Physical Therapy Visit Information Visit Information Visit Type Initial Evaluation Visit Start Time 13:45 Visit Stop Time 14:30 Total Visit Minutes 45 Visit Number 1 Number of MAIN LINE ASSEMBLER Visits 0 Evaluation Information Evaluation Date 09/10/18 PT-OP-B Current Condition Start: 09/09/18 13:48 Freq: Status: Active Protocol: Document 09/09/18 14:35 BS (Rec: 09/10/18 16:15 BS [email or web address]) Current Condition History of Current Condition Onset Date chronic Current Complaints L sided neck pain History of Current Condition Patricia complains of chronic L sided neck pain that is constant in nature and is rated at a 6/10 with denial of radicular symptoms into her upper extremities. Pt also complains of frequent L sided headaches that are intensified with increased neck pain. Pt reports that she has difficulty sleeping and states that she wakes every hour due to her neck pain. She has difficulty with cleaning, showering, driving, and reading. Pt uses a personal TENS unit for 30 minutes 3x/ day and takes gabapentin and ibuprofen to manage her pain. She denies numbness/tingling into her upper extremities, but notes that prior to her cervical surgery (2015) she was having less neck pain, but more radicular symptoms into her LUE. 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 Prior Treatments and Tests Prior physical therapy in 2018 for neck pain and following R tibial, ankle, and 2,3 MT fractures. Left C7 marissa-laminectomy 2015. Cervical CT 02/2018: advanced degenerative changes in cervical spine, irregularity of anterior aspect of dens. Treatment Goals Patient/Caregiver Goals Reduce neck pain so she can complete job requirements with less difficulty/limitations. Sleep throughout the night without waking due to pain. Reduce frequency of headaches. Prior Functional Status Baseline Function- ADL's Independent Baseline Function- Mobility Independent Baseline Function- Gait Independent without use of AD. 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 She recently switched jobs and only works 10 hours/week due to her pain. Baseline Function- Recreation/Hobbies Independent Baseline Function- Other Independent Current Functional Impairments (Reported) Functional Limitations- ADL's cooking, cleaning, showering, sleeping, driving. Functional Limitations- Mobility/Gait Independent without use of AD, normalized gait mechanics. Functional Limitations- Work/School Limitations in ability to complete work requirements due to neck pain and co-existing headaches. Pain increases with vacuuming and reaching with LUE when cleaning. Pt attempts to only use RUE. Functional Limitations- Recreation/ pt reports difficulty reading Hobbies due to increased neck pain and headaches. Personal Factors Other Personal Factors That May Effect Advanced degenerative changes Therapy/Recovery to cervical spine per 2018 CT. Chronic neck pain. PT-OP-C Subjective Start: 09/09/18 13:48 Freq: Status: Active Protocol: Document 09/09/18 14:35 BS (Rec: 09/10/18 17:19 BS [email or web address]) Patient Questionnaires Neck Disability Index NDI Score 42% Neck Disability Index Impairment 40 to 59% Impaired (Score 20- 29) Quick Dash- Upper Extremity Quick Dash UE Score 43.18 Quick Dash UE Impairment 40 to 59% Impaired (Score 40- 59) OP-PT Pain Assessment Pain Assessment Grid Paper Pain Assessment Grid Completed Yes Location Left Neck Pain Location Details L side neck Intensity 6 Scale Used Numeric (1 - 10) Description Aching Chronic Tender Tightness Frequency Constant Pain Aggravating Factors Position ADL's Activity Exercise Bending Lifting Coughing Pain Alleviating Factors Medication Rest Other Pain Alleviating Factors personal TENS unit 30 min 3x/ daily PT-OP-F Manual Assessment Start: 09/09/18 13:48 Freq: Status: Active Protocol: Document 09/09/18 14:35 BS (Rec: 09/10/18 17:19 BS [email or web address]) Manual Assessments Soft Tissue Assessment Soft Tissue Mobility Assessment With manual soft tissue assessment, hypertonicity noted to L upper trapezius and levator scapulae. Pt denied pain radiation with palpation. Joint Mobility Assessment Joint Mobility Assessment Central and unilateral PAs to cervical spine revealed hypomobility and stiffness from C3-C7. Other Manual Assessments Other Manual Assessments Muscle guarding with cervical PROM into L rotation and sidebend. PT-OP-G Mobility & Gait Start: 09/09/18 13:48 Freq: Status: Active Protocol: Document 09/09/18 14:35 BS (Rec: 09/10/18 17:19 BS [email or web address]) OP Mobility Evaluation Bed Mobility Supine to and from Sit Independent Transfers Sit to Stand Independent Bed to Chair Transfers Independent Functional Movements Lifting and Carrying Pt reports that she has moderate difficulty carrying a shopping bag or heavy objects due to increased L neck pain. OP Gait Assessment Gait Gait Assistance Required: Independent Assistive Devices Assistive Device None Gait Deviations General Gait Pattern Within Normal Limits PT-OP-J Posture/Palpation/Skin Start: 09/09/18 13:48 Freq: Status: Active Protocol: Document 09/09/18 14:35 BS (Rec: 09/10/18 17:19 BS [email or web address]) Posture Evaluation Position Sitting Evaluation View Lateral Head/C-Spine Posture Forward Head Shoulder Posture (L) Rounded (R) Rounded Palpation Assessment Location One Palpation Location upper trapezius, suboccipitals , levator, cervical paraspinals Palpation Findings Soft Tissue Tightness Tenderness Palpation Details Bilateral upper trapezius hypertonicity with left>right. Left suboccipitals and levator scapulae tender to palpation with moderate pressure. L and R cervical paraspinals tender to palpation with increased tone. PT-OP-K Range of Motion Start: 09/09/18 13:48 Freq: Status: Active Protocol: Document 09/09/18 14:35 BS (Rec: 09/10/18 17:19 BS [email or web address]) Cervical Spine Range of Motion Cervical Spine Active Degrees Testing Position Sitting Flexion 20 Extension 45 Rotation Left 35 Rotation Right 52 Lateral Flexion Left 15 Lateral Flexion Right 20 ROM Limitations Soft Tissue Tightness Pain Comments Pt reports feeling of stiffness with L rotation and sidebend. She also notes upper trap tightness with bilateral sidebending. Shoulder Goniometric Range of Motion Shoulder Measured in Degrees Right Active Testing Position Sitting Flexion 148 Abduction 150 Left Active Shoulder ROM WFL No Testing Position Sitting Flexion 101 Abduction 115 Shoulder ROM Limitations Comments R shoulder AROM for flexion and abduction WFL and pain free. L shoulder AROM flexion and abduction significantly limited due to increased L neck pain. PT-OP-L Special Tests Start: 09/09/18 13:48 Freq: Status: Active Protocol: Document 09/09/18 14:35 BS (Rec: 09/10/18 17:19 BS [email or web address]) Special Tests Cervical Spine Special Tests Spurling's Test Test Results positive Comments positive for L neck pain, denies radicular symptoms PT-OP-M Strength Start: 09/09/18 13:48 Freq: Status: Active Protocol: Document 09/09/18 14:35 BS (Rec: 09/10/18 17:19 BS [email or web address]) Cervical Spine Strength Cervical Spine Manual Muscle Testing Flexion (C1-2) 4 Good Extension 4 Good Rotation Left 4+ Good+ Rotation Right 4+ Good+ Lateral Flexion Left (C3) 4+ Good+ Lateral Flexion Right (C3) 4+ Good+ Comments L neck pain reproduction with flexion and extension MMT. Shoulder Strength Shoulder Manual Muscle Testing Right Flexion 5 Normal Abduction (C5) 5 Normal External Rotation 4+ Good+ Internal Rotation 4+ Good+ Comments R shoudler MMT pain-free and strong. Left Flexion 3- Fair- Abduction (C5) 3- Fair- External Rotation 4 Good Internal Rotation 4 Good Comments L shoulder flexion and abduction MMT 3-/5 with increased L neck pain. Pt unable to actively move through full range against gravity due to neck pain. PT-OP-Q Treatments Start: 09/09/18 13:48 Freq: Status: Active Protocol: Document 09/09/18 14:35 BS (Rec: 09/10/18 17:19 BS [email or web address]) Therapeutic Exercises Sitting Exercises 1 Sitting Exercise Name Upper trap stretch Side bilateral Reps/Minutes 2x30 each side Standing Exercises 1 Standing Exercise Name Corner pec stretch Side bilateral Reps/Minutes 2x30 Manual Therapy Treatment Soft Tissue Mobilization 5 Body Location Upper traps, levator, cervical paraspinals Mobilization Type Myofascial Release Body Position Hooklying Comments B upper trapezius with greater focus on L upper trap, L levator scapulae, L cervical paraspinals. PT-OP-T Assessment and Plan Start: 09/09/18 13:48 Freq: Status: Active Protocol: Document 09/09/18 14:35 BS (Rec: 09/10/18 17:19 BS [email or web address]) Physical Therapy Assessment Rehab Potential Rehabilitation Potential Good Evaluation Complexity Number of Personal Factors/Comorbidities 0 Number of Body Systems Impaired 1-2 Clinical Presentation at Evaluation Stable Impairments Impairments Activity Tolerance Functional Activities Functional Mobility Pain Posture ROM Soft Tissue Mobility Strength Goals Eight Impairment lack of HEP Short Term Goal (STG) Pt to be independent with an appropriate stretching and cervical mobility HEP to maximize rehabiliation potential outside of formal physical therapy sessions. STG Duration 3 weeks Journeyman Powerhouse Operator Goal (LTG) Cervical AROM for left sidebend and rotation to be pain-free and comparable to R cervical sidebend (20 deg) and rotation (52 deg) so that pt is able to shower and wash hair without feeling limited due to her neck pain. 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 LTG Duration 10 weeks Six Impairment Pain Short Term Goal (STG) Pt will report intermittent as opposed to constant L neck pain less than 6/10 in intensity to promote performance of daily activities with less difficulty. STG Duration 5 weeks Assessment Summary Assessment Patricia is a 43 year old female who presents with chronic and constant left sided neck pain with accompanying headaches. Pt has a history of a previous cervical left sided partial laminectomy at C7 in 2016. Pt reports that she no longer has radicular symptoms into her upper extremities but that she has had increased L neck pain limiting her ability to perform daily activities and work duties. Pt has recently had to switch jobs and works only 10 hours/week due to her neck pain and headaches. Pt demo's muscular tightness in her L upper trapezius, levator , and suboccitals likely contributing to her neck pain and headaches. She also presents with L shoulder weakness and limited ROM. Pt will benefit from skilled physical therapy intervention to address the aforementioned impairments and limitations to increase activity tolerance, reduce constant neck pain and frequency of headaches. Physical Therapy Plan Frequency and Duration Frequency of Treatment 1-2x/week Duration of Treatment 10 weeks Plan of Care Start Date 09/10/18 Plan of Care End Date 11/18/18 Therapeutic Interventions Therapeutic Interventions Home Exercise Program Joint Mobilizations Manual Therapy Patient/Caregiver Education Self-Care/Home Management Soft Tissue Mobilization Taping Therapeutic Activities Therapeutic Exercises Modalities Cold Pack/Ice Massage Electric Stimulation Hot Packs Traction- Mechanical Ultrasound Next Visit Focus/Plan Next Note Type Treatment Note Next Visit Plan upper trap and pectoralis stretch, review HEP. Begin postural muscle strengthening and continue with manual therapy to L suboccipitals, levator, and upper trap.
--- NOTE | 2018-09-11 12:20 | PT.OPPOC ---
Current Diagnoses Cervicalgia (09/09/18) Provider Visit Care Team Role Provider Type Ana Hensley DO Attending Provider Physician Family Provider Primary Care Provider Specialty: Family Practice Address: [address] [place] [address], [id number] Email: [email or web address] Plan Of Care PT-OP-T Assessment and Plan Start: 09/09/18 13:48 Freq: Status: Active Protocol: Document 09/09/18 14:35 BS (Rec: 09/10/18 17:19 BS [email or web address]) Physical Therapy Assessment Rehab Potential Rehabilitation Potential Good Evaluation Complexity Number of Personal Factors/Comorbidities 0 Number of Body Systems Impaired 1-2 Clinical Presentation at Evaluation Stable Impairments Impairments Activity Tolerance Functional Activities Functional Mobility Pain Posture ROM Soft Tissue Mobility Strength Goals Eight Impairment lack of HEP Short Term Goal (STG) Pt to be independent with an appropriate stretching and cervical mobility HEP to maximize rehabiliation potential outside of formal physical therapy sessions. 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 LTG Duration 10 weeks Six Impairment Pain Short Term Goal (STG) Pt will report intermittent as opposed to constant L neck pain less than 6/10 in intensity to promote performance of daily activities with less difficulty. STG Duration 5 weeks Assessment Summary Assessment Patricia is a 43 year old female who presents with chronic and constant left sided neck pain with accompanying headaches. Pt has a history of a previous cervical left sided partial laminectomy at [facility] in 2016. Pt reports that she no longer has radicular symptoms into her upper extremities but that she has had increased L neck pain limiting her ability to perform daily activities and work duties. Pt has recently had to switch jobs and works only 10 hours/week due to her neck pain and headaches. Pt demo's muscular tightness in her L upper trapezius, levator , and suboccitals likely contributing to her neck pain and headaches. She also presents with L shoulder weakness and limited ROM. Pt will benefit from skilled physical therapy intervention to address the aforementioned impairments and limitations to increase activity tolerance, reduce constant neck pain and frequency of headaches. Physical Therapy Plan Frequency and Duration Frequency of Treatment 1-2x/week Duration of Treatment 10 weeks Plan of Care Start Date 09/09/18 Plan of Care End Date 11/18/18 Therapeutic Interventions Therapeutic Interventions Home Exercise Program Joint Mobilizations Manual Therapy Patient/Caregiver Education Self-Care/Home Management Soft Tissue Mobilization Taping Therapeutic Activities Therapeutic Exercises Modalities Cold Pack/Ice Massage Electric Stimulation Hot Packs Traction- Mechanical Ultrasound Next Visit Focus/Plan Next Note Type Treatment Note Next Visit Plan upper trap and pectoralis stretch, review HEP. Begin postural muscle strengthening and continue with manual therapy to L suboccipitals, levator, and upper trap. Plan of Care Dates Plan of Care Start Date 09/09/18 Plan of Care End Date 11/18/18 Please Sign and Return: I have reviewed this Plan of Care and certify that the skilled therapy services above are required to meet the patient?s needs. Physician Signature Date Printed Name and Credentials Clinical Instructor Signature Printed Name and Credentials
--- NOTE | 2018-09-30 12:05 | PT.OTN ---
Current Diagnoses Cervicalgia (09/30/18) Physical Therapy Treatment Note PT-OP-A Visit Information Start: 09/09/18 13:48 Freq: Status: Active Protocol: Document 09/30/18 12:05 [facility] (Rec: 10/01/18 13:06 [facility] [email or web address]) Out-Patient Physical Therapy Visit Information Visit Information Visit Type Treatment Note Visit Start Time 12:05 Visit Stop Time 12:45 Total Visit Minutes 40 Visit Number 2 Number of WEB CONSULTANT Visits 0 Evaluation Information Evaluation Date 09/10/18 PT-OP-B Current Condition Start: 09/09/18 13:48 Freq: Status: Active Protocol: Document 09/09/18 14:35 BS (Rec: 09/10/18 16:15 BS [email or web address]) Current Condition History of Current Condition Onset Date chronic Current Complaints L sided neck pain History of Current Condition Patricia complains of chronic L sided neck pain that is constant in nature and is rated at a 6/10 with denial of radicular symptoms into her upper extremities. Pt also complains of frequent L sided headaches that are intensified with increased neck pain. Pt reports that she has difficulty sleeping and states that she wakes every hour due to her neck pain. She has difficulty with cleaning, showering, driving, and reading. Pt uses a personal TENS unit for 30 minutes 3x/ day and takes gabapentin and ibuprofen to manage her pain. She denies numbness/tingling into her upper extremities, but notes that prior to her cervical surgery (2015) she was having less neck pain, but more radicular symptoms into her LUE. 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 Prior Treatments and Tests Prior physical therapy in 2018 for neck pain and following R tibial, ankle, and 2,3 MT fractures. Left C7 marissa-laminectomy 2015. Cervical CT 02/2018: advanced degenerative changes in cervical spine, irregularity of anterior aspect of dens. Treatment Goals Patient/Caregiver Goals Reduce neck pain so she can complete job requirements with less difficulty/limitations. Sleep throughout the night without waking due to pain. Reduce frequency of headaches. Prior Functional Status Baseline Function- ADL's Independent Baseline Function- Mobility Independent Baseline Function- Gait Independent without use of AD. 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 She recently switched jobs and only works 10 hours/week due to her pain. Baseline Function- Recreation/Hobbies Independent Baseline Function- Other Independent Current Functional Impairments (Reported) Functional Limitations- ADL's cooking, cleaning, showering, sleeping, driving. Functional Limitations- Mobility/Gait Independent without use of AD, normalized gait mechanics. Functional Limitations- Work/School Limitations in ability to complete work requirements due to neck pain and co-existing headaches. Pain increases with vacuuming and reaching with LUE when cleaning. Pt attempts to only use RUE. Functional Limitations- Recreation/ pt reports difficulty reading Hobbies due to increased neck pain and headaches. Personal Factors Other Personal Factors That May Effect Advanced degenerative changes Therapy/Recovery to cervical spine per 2018 CT. Chronic neck pain. PT-OP-C Subjective Start: 09/09/18 13:48 Freq: Status: Active Protocol: Document 09/30/18 12:05 RCC (Rec: 10/01/18 13:06 RCC [email or web address]) OP-PT Subjective Patient Comments Patient Comments Pt notes she is having some good days, but still has [place] often and cannot tolerate any activity on really bad days. PT-OP-F Manual Assessment Start: 09/09/18 13:48 Freq: Status: Active Protocol: Document 09/09/18 14:35 BS (Rec: 09/10/18 17:19 BS [email or web address]) Manual Assessments Soft Tissue Assessment Soft Tissue Mobility Assessment With manual soft tissue assessment, hypertonicity noted to L upper trapezius and levator scapulae. Pt denied pain radiation with palpation. Joint Mobility Assessment Joint Mobility Assessment Central and unilateral PAs to cervical spine revealed hypomobility and stiffness from C3-C7. Other Manual Assessments Other Manual Assessments Muscle guarding with cervical PROM into L rotation and sidebend. PT-OP-G Mobility & Gait Start: 09/09/18 13:48 Freq: Status: Active Protocol: Document 09/09/18 14:35 BS (Rec: 09/10/18 17:19 BS [email or web address]) OP Mobility Evaluation Bed Mobility Supine to and from Sit Independent Transfers Sit to Stand Independent Bed to Chair Transfers Independent Functional Movements Lifting and Carrying Pt reports that she has moderate difficulty carrying a shopping bag or heavy objects due to increased L neck pain. OP Gait Assessment Gait Gait Assistance Required: Independent Assistive Devices Assistive Device None Gait Deviations General Gait Pattern Within Normal Limits PT-OP-J Posture/Palpation/Skin Start: 09/09/18 13:48 Freq: Status: Active Protocol: Document 09/09/18 14:35 BS (Rec: 09/10/18 17:19 BS [email or web address]) Posture Evaluation Position Sitting Evaluation View Lateral Head/C-Spine Posture Forward Head Shoulder Posture (L) Rounded (R) Rounded Palpation Assessment Location One Palpation Location upper trapezius, suboccipitals , levator, cervical paraspinals Palpation Findings Soft Tissue Tightness Tenderness Palpation Details Bilateral upper trapezius hypertonicity with left>right. Left suboccipitals and levator scapulae tender to palpation with moderate pressure. L and R cervical paraspinals tender to palpation with increased tone. PT-OP-K Range of Motion Start: 09/09/18 13:48 Freq: Status: Active Protocol: Document 09/09/18 14:35 BS (Rec: 09/10/18 17:19 BS [email or web address]) Cervical Spine Range of Motion Cervical Spine Active Degrees Testing Position Sitting Flexion 20 Extension 45 Rotation Left 35 Rotation Right 52 Lateral Flexion Left 15 Lateral Flexion Right 20 ROM Limitations Soft Tissue Tightness Pain Comments Pt reports feeling of stiffness with L rotation and sidebend. She also notes upper trap tightness with bilateral sidebending. Shoulder Goniometric Range of Motion Shoulder Measured in Degrees Right Active Testing Position Sitting Flexion 148 Abduction 150 Left Active Shoulder ROM WFL No Testing Position Sitting Flexion 101 Abduction 115 Shoulder ROM Limitations Comments R shoulder AROM for flexion and abduction WFL and pain free. L shoulder AROM flexion and abduction significantly limited due to increased L neck pain. PT-OP-L Special Tests Start: 09/09/18 13:48 Freq: Status: Active Protocol: Document 09/09/18 14:35 BS (Rec: 09/10/18 17:19 BS [email or web address]) Special Tests Cervical Spine Special Tests Spurling's Test Test Results positive Comments positive for L neck pain, denies radicular symptoms PT-OP-M Strength Start: 09/09/18 13:48 Freq: Status: Active Protocol: Document 09/09/18 14:35 BS (Rec: 09/10/18 17:19 BS [email or web address]) Cervical Spine Strength Cervical Spine Manual Muscle Testing Flexion (C1-2) 4 Good Extension 4 Good Rotation Left 4+ Good+ Rotation Right 4+ Good+ Lateral Flexion Left (C3) 4+ Good+ Lateral Flexion Right (C3) 4+ Good+ Comments L neck pain reproduction with flexion and extension MMT. Shoulder Strength Shoulder Manual Muscle Testing Right Flexion 5 Normal Abduction (C5) 5 Normal External Rotation 4+ Good+ Internal Rotation 4+ Good+ Comments R shoudler MMT pain-free and strong. Left Flexion 3- Fair- Abduction (C5) 3- Fair- External Rotation 4 Good Internal Rotation 4 Good Comments L shoulder flexion and abduction MMT 3-/5 with increased L neck pain. Pt unable to actively move through full range against gravity due to neck pain. PT-OP-Q Treatments Start: 09/09/18 13:48 Freq: Status: Active Protocol: Document 09/30/18 12:05 [facility] (Rec: 10/01/18 13:06 [facility] [email or web address]) Manual Therapy Treatment Soft Tissue Mobilization levator, UT, scalenes, suboccipitals Body Location bilateral Mobilization Type Myofascial Release Sustained Pressure Intensity/Depth Moderate Body Position Hooklying Joint Mobilizations Sideglide Joint C3-6 Direction sideglide L Grade II Body Position Hooklying Reps/Duration 8 min Manual Traction Cervical Body Position Hooklying Reps/Duration 30 sec on, 30 off for 6 min PT-OP-R Modalities Start: 09/09/18 13:48 Freq: Status: Active Protocol: Document 09/30/18 12:05 [facility] (Rec: 10/01/18 13:06 [facility] [email or web address]) Hot Pack/Cold Pack Treatment Hot Pack Location cervical spine Patient Position Hooklying Treatment Duration (minutes) 10 Comments post-manual therapy PT-OP-T Assessment and Plan Start: 09/09/18 13:48 Freq: Status: Active Protocol: Document 09/30/18 12:05 [facility] (Rec: 10/01/18 13:06 [facility] [email or web address]) Physical Therapy Assessment Assessment Summary Assessment Pt tolerated gentle sidegliding without c/o pain, with decreased tension in L side of cervical spine. Plan to progress with gentle cervical strengthening if tone demonstrates good carry-over from session to session. Physical Therapy Plan Frequency and Duration Frequency of Treatment 1-2x/week Duration of Treatment 10 weeks Plan of Care Start Date 09/09/18 Plan of Care End Date 11/18/18 Next Visit Focus/Plan Next Note Type Treatment Note Next Visit Plan postural training, chin tuck; assess tolerance to previous treatment
--- NOTE | 2018-10-14 12:05 | PT.OTN ---
Current Diagnoses Cervicalgia (10/14/18) Physical Therapy Treatment Note PT-OP-A Visit Information Start: 09/09/18 13:48 Freq: Status: Active Protocol: Document 10/14/18 12:05 [facility] (Rec: 10/14/18 13:09 [facility] [email or web address]) Out-Patient Physical Therapy Visit Information Visit Information Visit Type Treatment Note Visit Start Time 12:05 Visit Stop Time 12:50 Total Visit Minutes 45 Visit Number 3 Number of EYEGLASS ASSEMBLER Visits 0 Evaluation Information Evaluation Date 09/10/18 PT-OP-B Current Condition Start: 09/09/18 13:48 Freq: Status: Active Protocol: Document 09/09/18 14:35 BS (Rec: 09/10/18 16:15 BS [email or web address]) Current Condition History of Current Condition Onset Date chronic Current Complaints L sided neck pain History of Current Condition Patricia complains of chronic L sided neck pain that is constant in nature and is rated at a 6/10 with denial of radicular symptoms into her upper extremities. Pt also complains of frequent L sided headaches that are intensified with increased neck pain. Pt reports that she has difficulty sleeping and states that she wakes every hour due to her neck pain. She has difficulty with cleaning, showering, driving, and reading. Pt uses a personal TENS unit for 30 minutes 3x/ day and takes gabapentin and ibuprofen to manage her pain. She denies numbness/tingling into her upper extremities, but notes that prior to her cervical surgery (2015) she was having less neck pain, but more radicular symptoms into her LUE. 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 Prior Treatments and Tests Prior physical therapy in 2018 for neck pain and following R tibial, ankle, and 2,3 MT fractures. Left C7 marissa-laminectomy 2015. Cervical CT 02/2018: advanced degenerative changes in cervical spine, irregularity of anterior aspect of dens. Treatment Goals Patient/Caregiver Goals Reduce neck pain so she can complete job requirements with less difficulty/limitations. Sleep throughout the night without waking due to pain. Reduce frequency of headaches. Prior Functional Status Baseline Function- ADL's Independent Baseline Function- Mobility Independent Baseline Function- Gait Independent without use of AD. 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 She recently switched jobs and only works 10 hours/week due to her pain. Baseline Function- Recreation/Hobbies Independent Baseline Function- Other Independent Current Functional Impairments (Reported) Functional Limitations- ADL's cooking, cleaning, showering, sleeping, driving. Functional Limitations- Mobility/Gait Independent without use of AD, normalized gait mechanics. Functional Limitations- Work/School Limitations in ability to complete work requirements due to neck pain and co-existing headaches. Pain increases with vacuuming and reaching with LUE when cleaning. Pt attempts to only use RUE. Functional Limitations- Recreation/ pt reports difficulty reading Hobbies due to increased neck pain and headaches. Personal Factors Other Personal Factors That May Effect Advanced degenerative changes Therapy/Recovery to cervical spine per 2018 CT. Chronic neck pain. PT-OP-C Subjective Start: 09/09/18 13:48 Freq: Status: Active Protocol: Document 10/14/18 12:05 RCC (Rec: 10/14/18 13:09 RCC [email or web address]) OP-PT Subjective Patient Comments Patient Comments Pt states she is actually having some good days, but continues to have some sort of pain in neck on the L>R throughout most activities, including work. PT-OP-F Manual Assessment Start: 09/09/18 13:48 Freq: Status: Active Protocol: Document 09/09/18 14:35 BS (Rec: 09/10/18 17:19 BS [email or web address]) Manual Assessments Soft Tissue Assessment Soft Tissue Mobility Assessment With manual soft tissue assessment, hypertonicity noted to L upper trapezius and levator scapulae. Pt denied pain radiation with palpation. Joint Mobility Assessment Joint Mobility Assessment Central and unilateral PAs to cervical spine revealed hypomobility and stiffness from C3-C7. Other Manual Assessments Other Manual Assessments Muscle guarding with cervical PROM into L rotation and sidebend. PT-OP-G Mobility & Gait Start: 09/09/18 13:48 Freq: Status: Active Protocol: Document 09/09/18 14:35 BS (Rec: 09/10/18 17:19 BS [email or web address]) OP Mobility Evaluation Bed Mobility Supine to and from Sit Independent Transfers Sit to Stand Independent Bed to Chair Transfers Independent Functional Movements Lifting and Carrying Pt reports that she has moderate difficulty carrying a shopping bag or heavy objects due to increased L neck pain. OP Gait Assessment Gait Gait Assistance Required: Independent Assistive Devices Assistive Device None Gait Deviations General Gait Pattern Within Normal Limits PT-OP-J Posture/Palpation/Skin Start: 09/09/18 13:48 Freq: Status: Active Protocol: Document 09/09/18 14:35 BS (Rec: 09/10/18 17:19 BS [email or web address]) Posture Evaluation Position Sitting Evaluation View Lateral Head/C-Spine Posture Forward Head Shoulder Posture (L) Rounded (R) Rounded Palpation Assessment Location One Palpation Location upper trapezius, suboccipitals , levator, cervical paraspinals Palpation Findings Soft Tissue Tightness Tenderness Palpation Details Bilateral upper trapezius hypertonicity with left>right. Left suboccipitals and levator scapulae tender to palpation with moderate pressure. L and R cervical paraspinals tender to palpation with increased tone. PT-OP-K Range of Motion Start: 09/09/18 13:48 Freq: Status: Active Protocol: Document 09/09/18 14:35 BS (Rec: 09/10/18 17:19 BS [email or web address]) Cervical Spine Range of Motion Cervical Spine Active Degrees Testing Position Sitting Flexion 20 Extension 45 Rotation Left 35 Rotation Right 52 Lateral Flexion Left 15 Lateral Flexion Right 20 ROM Limitations Soft Tissue Tightness Pain Comments Pt reports feeling of stiffness with L rotation and sidebend. She also notes upper trap tightness with bilateral sidebending. Shoulder Goniometric Range of Motion Shoulder Measured in Degrees Right Active Testing Position Sitting Flexion 148 Abduction 150 Left Active Shoulder ROM WFL No Testing Position Sitting Flexion 101 Abduction 115 Shoulder ROM Limitations Comments R shoulder AROM for flexion and abduction WFL and pain free. L shoulder AROM flexion and abduction significantly limited due to increased L neck pain. PT-OP-L Special Tests Start: 09/09/18 13:48 Freq: Status: Active Protocol: Document 10/14/18 12:05 [facility] (Rec: 10/14/18 13:09 [facility] [email or web address]) Special Tests Other Special Tests Special Tests shoulder abduction with palm up, SB cervical spine opp: R shoulder 170 deg, L shoulder 87 deg shoulder abd with neutral head : 180 deg R and 125 deg L (c/o neck pain) PT-OP-M Strength Start: 09/09/18 13:48 Freq: Status: Active Protocol: Document 09/09/18 14:35 BS (Rec: 09/10/18 17:19 BS [email or web address]) Cervical Spine Strength Cervical Spine Manual Muscle Testing Flexion (C1-2) 4 Good Extension 4 Good Rotation Left 4+ Good+ Rotation Right 4+ Good+ Lateral Flexion Left (C3) 4+ Good+ Lateral Flexion Right (C3) 4+ Good+ Comments L neck pain reproduction with flexion and extension MMT. Shoulder Strength Shoulder Manual Muscle Testing Right Flexion 5 Normal Abduction (C5) 5 Normal External Rotation 4+ Good+ Internal Rotation 4+ Good+ Comments R shoudler MMT pain-free and strong. Left Flexion 3- Fair- Abduction (C5) 3- Fair- External Rotation 4 Good Internal Rotation 4 Good Comments L shoulder flexion and abduction MMT 3-/5 with increased L neck pain. Pt unable to actively move through full range against gravity due to neck pain. PT-OP-Q Treatments Start: 09/09/18 13:48 Freq: Status: Active Protocol: Document 10/14/18 12:05 RCC (Rec: 10/14/18 13:09 [facility] [email or web address]) Therapeutic Exercises Sitting Exercises median nerve glide Side left Reps/Minutes x5 min Comments neutral head on neck, elbow extension with alt wrist flex/ ext Manual Therapy Treatment Soft Tissue Mobilization levator, UT, scalenes, suboccipitals Body Location bilateral Mobilization Type Myofascial Release Sustained Pressure Intensity/Depth Moderate Body Position Hooklying Joint Mobilizations Sideglide Joint C3-6 Direction sideglide L Grade II Body Position Hooklying Reps/Duration 10 min PT-OP-R Modalities Start: 09/09/18 13:48 Freq: Status: Active Protocol: Document 10/14/18 12:05 RCC (Rec: 10/14/18 13:09 [facility] [email or web address]) Spinal Traction Traction Treatment Cervical Patient Position Supine Force Applied (Pounds) 10 Duration of Treatment (Minutes) 10 Heating Pad Applied No Traction Treatment Comment good relief of pain per pt PT-OP-T Assessment and Plan Start: 09/09/18 13:48 Freq: Status: Active Protocol: Document 10/14/18 12:05 [facility] (Rec: 10/14/18 13:09 [facility] [email or web address]) Physical Therapy Assessment Assessment Summary Assessment Pt presented with increased L sided neck pain with shoulder abduction and with the head in a R sidebent position, with intensity of pain increasing with L shoulder abduction, indicating potential median nerve involvement in her pain. Pt tolerated mechanical traction well, with decreased pain during activity per pt subjective report. Physical Therapy Plan Frequency and Duration Frequency of Treatment 1-2x/week Duration of Treatment 10 weeks Plan of Care Start Date 09/09/18 Plan of Care End Date 11/18/18 Next Visit Focus/Plan Next Note Type Treatment Note Next Visit Plan assess tolerance to mechanical traction and nerve glides, progress posture and neck stabilization as tolerated.
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
--- NOTE | 2018-11-19 14:06 | PT-OP ANOTE ---
Pt no showed appointment on 11/19. Called and left VM reminding of next appointment, NS/CX policy, and will D/C if next visit is NS
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
--- NOTE | 2019-01-13 17:03 | PT.OPDS ---
Current Diagnoses Cervicalgia (11/25/18) Provider Visit Care Team Role Provider Type Ana Hensley DO Attending Provider Physician Family Provider Primary Care Provider Specialty: [facility] Address: [address] [place] [address], [facility] [address], [place], [address] Email: [email or web address] Visit Number Visit Number 5 Discharge Summary PT-OP-T Assessment and Plan Start: 09/09/18 13:48 Freq: Status: Active Protocol: Document 01/13/19 17:01 [facility] (Rec: 01/13/19 17:03 [facility] [email or web address]) Physical Therapy Plan Discharge Physical Therapy Discharge Comments Pt has cancelled 7 appointments, no showed 3 appointments and attended 5 appointments since 09/16/18. At this point, pt is d/c d/t noncompliance with PT.
== END 2019-01-15 09:56 | disposition home or self-care (01) ==
LOC: PHYS 14:30
PROVIDERS: Family Provider Family Medicine; PCP Family Medicine; Visit Provider Family Medicine
DX: M54.2 Cervicalgia (principal)
CPT/HCPCS: 97010; 97012; 97110; 97140; 97161

== ENCOUNTER 2019-03-05 01:13 | Emergency (ER) | payer OTHER, MEDICAID, SELFPAY ==
[2019-03-05] VITALS (13 sets, daily range): BP systolic 119–130; BP diastolic 80–98; PULSE 88–105; RESP 14–94; TEMP 36.6; O2SAT 93–99
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
--- NOTE | 2019-03-05 01:25 | PC.NURSE ---
Provider completed fast exam at this, verbalizes negative.
[2019-03-05] MEDS: SODIUM CHLORIDE 0.9% 1,000 ML 150 ML IV (01:40)
[2019-03-05 01:49] LABS: Prothrombin Time 11.5 SECONDS (10.1-12.7)
[2019-03-05 01:51] LABS: Add Manual Diff / Slide Review NO; Basophils Absolute Auto 100 /uL (0-100); Basophils Percent Auto 0.9 % (0-2); Eosinophils Absolute Auto 100 /uL (0-450); Eosinophils Percent Auto 1.2 % (2-4); Hematocrit 44.2 % (36-46); Hemoglobin 15.6 g/dL (12.0-16.0); Lymphocytes Absolute Auto 3600 /uL (1100-4500); Lymphocytes Percent Auto 43.6 % (25-40); Mean Corpuscular HGB Conc 35.3 % (30-36); Mean Corpuscular Hemoglobin 38.8 PG (26-34); Monocytes Absolute Auto 700 /uL (0-900); Monocytes Percent Auto 8.8 % (3-14); Neutrophils Absolute Auto 3800 /uL (1500-7000); Neutrophils Percent Auto 45.5 % (50-75); PTT Partial Thromboplastin Tim 34 SECONDS (26.4-36.2); Platelet Count 217 X10^3/uL (150-400); Red Blood Cell Count 4.01 X10^6/uL (4.0-5.2); White Blood Cell Count 8.3 X10^3/uL (4.5-11.0)
[2019-03-05 01:58] LABS: Pregnancy Test Serum,Qual Negative (Negative)
[2019-03-05] MEDS: CEFAZOLIN 2 GM/100 ML FROZ.PIGGY IV (02:10)
[2019-03-05] MEDS: fentaNYL 100 MCG/2 ML INJ 50 MCG IV ×2 (02:11→02:50)
[2019-03-05] MEDS: TET,DIPH,PERTUSS(ACELL),VAC/PF 0.5 ML SYRINGE IM (02:17)
[2019-03-05 02:51] LABS: Albumin 4.9 g/dL (3.5-5.0); Albumin Globulin Ratio 1.4 (1.0-2.8); Alkaline Phosphatase 77 U/L (38-126); Bilirubin Total 0.6 mg/dL (0.2-1.3); Blood Urea Nitrogen 9 mg/dL (7-17); Calcium 9.7 mg/dL (8.4-10.2); Carbon Dioxide 29 mmol/L (22-32); Chloride 102 mmol/L (98-107); Creatine Kinase 85 U/L (30-135); Estimated Glomerular Filt Rate > 60.0 mL/min (>60); Globulin 3.6 g/dL (1.7-4.1); Glucose 114 mg/dL (70-100); Lipase 151 U/L (23-300); Sodium 145 mmol/L (137-145); Total Protein 8.5 g/dL (6.3-8.2)
[2019-03-05 02:53] LABS: HEMOLYSIS 59 (0-50)
[2019-03-05 02:56] LABS: Aspartate Aminotransferase 231 IU/L (14-36)
[2019-03-05 02:57] LABS: Alanine Aminotransferase 113 IU/L (9-52)
[2019-03-05 02:58] LABS: Potassium 3.9 mmol/L (3.4-5.1)
[2019-03-05 03:08] LABS: Ethanol (ETOH) 361 mg/dL
[2019-03-05 03:14] LABS: Troponin I < 0.012 ng/mL (0.01-0.034)
== END 2019-03-05 03:20 | disposition short-term general hospital (02) ==
PROVIDERS: Emergency Provider Emergency Medicine
DX: S06.6X9A Traumatic subarachnoid hemorrhage with loss of consciousness of unspecified duration, initial encounter (principal); S12.500A Unspecified displaced fracture of sixth cervical vertebra, initial encounter for closed fracture; S02.32XA Fracture of orbital floor, left side, initial encounter for closed fracture; S02.122A Fracture of orbital roof, left side, initial encounter for closed fracture; S22.43XA Multiple fractures of ribs, bilateral, initial encounter for closed fracture; S02.118A Other fracture of occiput, unspecified side, initial encounter for closed fracture; V47.5XXA Car driver injured in collision with fixed or stationary object in traffic accident, initial encounter; Z23 Encounter for immunization
CPT/HCPCS: 70450; 70486; 71045; 71260; 72125; 72170; 74177; 80053; 80320; 82550; 83690; 84484; 84703; 85025; 85610; 85730; 86850; 86900; 86901; 90471; 93005; 96361; 96365; 96375; 96376; 99285; 99291; 99292; 90715; G0390; J0690; J3010; Q9967

== ENCOUNTER → 2020-03-09 13:48 | Outpatient (CLI) | payer OTHER, MEDICAID, SELFPAY ==
--- NOTE | 2020-03-09 13:51 | DI.RAD.S_ITS ---
PROCEDURE: XR ANKLE RT MIN 3V INDICATIONS: fixation hardware in rt ankle TECHNIQUE: 3 views of the ankle were acquired. COMPARISON: [facility], CR, ANKLE 3 VIEWS RIGHT, 09/06/2017, 1:16. [facility], CR, XR ANKLE 3 VIEWS WEIGHT BEARING RIGHT, 09/12/2017, 8:49. [facility], CR, XR ANKLE 3 VIEWS WEIGHT BEARING RIGHT, 09/24/2018, 14:36. FINDINGS: Bones: Prior ORIF of medial malleolar ankle fracture with 2 surgical K-wires in expected position. Bony alignment is normal. Ankle mortise is symmetric. Soft tissues: No tibiotalar joint effusion. Achilles tendon appears normal. IMPRESSION: Prior ORIF and there are 2 surgical K-wires involving the medial malleolus in expected unchanged positions. Dictated by: Dustin VILLANUEVA Interpreted: Juvencio Dempsey MD on 03/09/2020 at 16:28 Approved by: Juvencio Dempsey M.D. on 03/09/2020 at 16:34
== END ==
PROVIDERS: Family Provider Family Medicine; PCP Student in an Organized Health Care Education/Training Program; Referring Provider Student in an Organized Health Care Education/Training Program; Visit Provider Student in an Organized Health Care Education/Training Program
DX: Z09 Encounter for follow-up examination after completed treatment for conditions other than malignant neoplasm (principal); Z96.7 Presence of other bone and tendon implants
CPT/HCPCS: 73610

== ENCOUNTER → 2020-03-14 13:22 | Outpatient (CLI) | payer OTHER, MEDICAID, SELFPAY ==
--- NOTE | 2020-03-14 13:30 | DI.CT.S_ITS ---
PROCEDURE: CT CERVICAL SPINE WO CON INDICATIONS: H/o cervical fracture 2019 with recent worsening of pain TECHNIQUE: Noncontrast 3 mm thick sections acquired from the skull base to the T4 level. Sagittal and coronal reformats were then constructed. For radiation dose reduction, the following was used: automated exposure control, adjustment of mA and/or kV according to patient size. COMPARISON: [facility], CT, CT CERVICAL SPINE WO CON, 03/05/2019, 1:21. FINDINGS: Image quality: Excellent. Bones: There is multilevel listhesis , new from the prior study. Specifically, there is anterolisthesis C2 on C3 measuring 2 mm, of C3 on C4 measuring 2 mm, of C5 on C6 measuring 3 mm, and of C6 on C7 measuring 3 mm. Overall straightening of the usual cervical lordosis. Vertebral body heights maintained remote fractures of the right C6 facet pillar and left C6 lamina are sclerotic in appearance indicative of healing however there is nonunion of both fractures. Secondary degenerative facet changes have formed adjacent to the right C6 facet pillar fracture. Soft tissues: Prevertebral and paraspinous soft tissues are within normal limits. At C2-C3, no spinal canal or neural foraminal stenosis. Facet and uncovertebral hypertrophy is present which is new from the prior study. At C3-C4, no spinal canal or neural foraminal stenosis. New facet and uncovertebral hypertrophy from when compared with the prior study. At C4-C5, no spinal canal or neural foraminal stenosis. Facet and uncovertebral hypertrophy which is new from the prior study. At C5-C6, facet and uncovertebral hypertrophy contribute to mild bilateral neural foraminal stenosis. No spinal canal narrowing. At C6-C7, facet and uncovertebral hypertrophy on the right contribute to mild neural foraminal narrowing. No neural foraminal stenosis on the left. No spinal canal stenosis. At C7-T1, no spinal canal or neural foraminal stenosis. IMPRESSION: Fractures of the right C6 facet pillar and left C6 lamina, both of which are healed/sclerotic in appearance but have healed in nonunion. Associated facet and uncovertebral hypertrophy new from the prior study, contributing to mild neural foraminal stenosis at C5-C6 and C6-C7 bilaterally. Additional new facet and uncovertebral hypertrophy at other levels in the cervical spine has developed since February 2019. This could presumably be degenerative in nature as there is also new facet and uncovertebral hypertrophy at these levels. The rapid development of degenerative change may be posttraumatic itself, although an element of instability as a result of the unhealed fractures or ligamentous injury sustained at the time of injury cannot be excluded. MRI could be helpful for further evaluation. Consider spine referral/consultation. Dictated by: Jim Saul M.D. on 03/14/2020 at 14:15 Approved by: Jim Saul M.D. on 03/14/2020 at 14:24
== END ==
PROVIDERS: Family Provider Family Medicine; PCP Student in an Organized Health Care Education/Training Program; Referring Provider Student in an Organized Health Care Education/Training Program; Visit Provider Student in an Organized Health Care Education/Training Program
DX: M54.2 Cervicalgia (principal); S12.500K Unspecified displaced fracture of sixth cervical vertebra, subsequent encounter for fracture with nonunion; M47.812 Spondylosis without myelopathy or radiculopathy, cervical region; Z11.3 Encounter for screening for infections with a predominantly sexual mode of transmission
CPT/HCPCS: 36415; 72125; 86704; 86706; 86803; 87389

== ENCOUNTER → 2020-03-14 13:39 | Outpatient (CLI) | payer OTHER, MEDICAID, SELFPAY ==
[2020-03-15 05:36] LABS: Hepatitis B Core Antibody Negative (Negative)
[2020-03-15 10:41] LABS: Hepatitis B Surf Ab Qualitativ Non Reactive (.)
[2020-03-15 20:45] LABS: HIV 1 & 2 Ab/Ag 4th Gen Combo NEGATIVE (NEGATIVE); Hep C Virus Ab w/Reflex Quant NEGATIVE s/c (NEGATIVE)
== END ==
PROVIDERS: Family Provider Family Medicine; PCP Student in an Organized Health Care Education/Training Program; Referring Provider Student in an Organized Health Care Education/Training Program; Visit Provider Student in an Organized Health Care Education/Training Program
DX: Z11.3 Encounter for screening for infections with a predominantly sexual mode of transmission (principal)
CPT/HCPCS: 36415; 86704; 86706; 86803; 87389

== ENCOUNTER → 2020-06-02 15:35 | Outpatient (CLI) | payer OTHER, MEDICAID, SELFPAY ==
--- NOTE | 2020-06-02 15:37 | DI.MRI.S_ITS ---
PROCEDURE: MR CERVICAL SPINE WO CON INDICATIONS: Further eval abnormal CT imaging TECHNIQUE: Noncontrast sagittal T1 spin echo and T2 fast spin echo, sagittal STIR, foraminal oblique sagittal T2 fast spin echo, and axial gradient echo or T2 fast spin echo through the cervical spine. COMPARISON: None. FINDINGS: Image quality: Excellent. Alignment and Curvature: There is normal bony alignment. Bone Marrow: Marrow demonstrates normal overall signal. Spinal Cord: Visualized spinal cord has normal size and signal. No cerebellar tonsillar herniation. Paraspinous Soft Tissues: No paravertebral masses. Prevertebral soft tissues are normal in thickness. C2-C3: Normal appearance. C3-C4: Normal appearance. C4-C5: Normal appearance. C5-C6: Normal appearance. C6-C7: Normal appearance. C7-T1: Normal appearance. IMPRESSION: Mild spondylosis and facet arthropathy. No canal or foraminal stenosis identified Dictated by: Tian Glass M.D. on 06/02/2020 at 16:53 Approved by: Tian Glass M.D. on 06/02/2020 at 17:00
== END ==
PROVIDERS: Family Provider Family Medicine; PCP Student in an Organized Health Care Education/Training Program; Referring Provider Student in an Organized Health Care Education/Training Program; Visit Provider Student in an Organized Health Care Education/Training Program
DX: M47.812 Spondylosis without myelopathy or radiculopathy, cervical region (principal); S12.9XXD Fracture of neck, unspecified, subsequent encounter; X58.XXXD Exposure to other specified factors, subsequent encounter
CPT/HCPCS: 72141

== ENCOUNTER → 2020-07-05 12:11 | Outpatient (CLI) | payer OTHER, MEDICAID, SELFPAY ==
--- NOTE | 2020-07-05 12:11 | DI.MG.S_ITS ---
BILATERAL DIGITAL SCREENING MAMMOGRAM 3D/2D WITH CAD: 07/05/2020 CLINICAL: Routine screening. Family history of breast cancer. Comparison is made to exam dated: 11/13/[facility]. The tissue of both breasts is extremely dense, which lowers the sensitivity of mammography. Current study was also evaluated with a Computer Aided Detection (CAD) system. No significant masses, calcifications, or other findings are seen in either breast. There has been no significant interval change. IMPRESSION: NEGATIVE There is no mammographic evidence of malignancy. A 1 year screening mammogram is recommended. This exam was interpreted at Station ID: [id number]. NOTE: For mammograms, a report in lay terms will be sent to the patient. Approximately 15% of breast malignancies will not be visualized mammographically. In the management of a palpable breast mass, a negative mammogram must not discourage biopsy of a clinically suspicious lesion. Electronically Signed By: Cosme Denney acr/celso:07/05/2020 13:35:44 letter sent: Normal Exam ACR BI-RADS Category 1: Negative [id number]
== END ==
PROVIDERS: PCP Student in an Organized Health Care Education/Training Program; Referring Provider Student in an Organized Health Care Education/Training Program; Visit Provider Student in an Organized Health Care Education/Training Program
DX: Z12.31 Encounter for screening mammogram for malignant neoplasm of breast (principal); Z80.3 Family history of malignant neoplasm of breast
CPT/HCPCS: 77063; 77067

== ENCOUNTER → 2021-10-25 11:39 | Outpatient (CLI) | payer OTHER, MEDICAID, SELFPAY ==
[2021-10-25 12:32] LABS: Hemoglobin 14.1 g/dL (12.0-16.0); Mean Corpuscular HGB Conc 35.4 % (30-36); Mean Corpuscular Hemoglobin 41.2 PG (26-34); Mean Corpuscular Volume 116.5 fL (80-100); Platelet Count 153 X10^3/uL (150-400); Red Blood Cell Count 3.43 X10^6/uL (4.0-5.2); Red Cell Distribution Width 14.1 % (11.6-14.8); White Blood Cell Count 6.6 X10^3/uL (4.5-11.0)
[2021-10-25 13:15] LABS: Alanine Aminotransferase 44 IU/L (<35); Albumin 4.4 g/dL (3.5-5.0); Albumin Globulin Ratio 1.1 (1.0-2.8); Alkaline Phosphatase 142 U/L (38-126); Aspartate Aminotransferase 125 IU/L (14-36); BUN Creatinine Ratio 24.3 (6-22); Bilirubin Total 0.9 mg/dL (0.2-1.3); Blood Urea Nitrogen 9 mg/dL (7-17); Calcium 9.4 mg/dL (8.4-10.2); Carbon Dioxide 27 mmol/L (22-32); Chloride 104 mmol/L (98-107); Estimated Glomerular Filt Rate > 60 mL/min (>60); Globulin 4.1 g/dL (1.7-4.1); Glucose 124 mg/dL (70-100); Sodium 140 mmol/L (137-145); Total Protein 8.5 g/dL (6.3-8.2)
[2021-10-25 13:18] LABS: HEMOLYSIS 87 (0-50); Potassium 4.2 mmol/L (3.4-5.1)
== END ==
PROVIDERS: PCP Student in an Organized Health Care Education/Training Program; Referring Provider Student in an Organized Health Care Education/Training Program; Visit Provider Student in an Organized Health Care Education/Training Program
DX: F10.21 Alcohol dependence, in remission (principal); Z79.1 Long term (current) use of non-steroidal anti-inflammatories (NSAID); Z79.899 Other long term (current) drug therapy
CPT/HCPCS: 36415; 80053; 85027

== ENCOUNTER 2021-12-03 15:35 | Emergency (ER) | payer OTHER, MEDICAID, SELFPAY ==
[2021-12-03 15:39] VITALS: PULSE 119; RESP 22; TEMP 36.6; O2SAT 99
--- NOTE | 2021-12-03 15:41 | DI.RAD.S_ITS ---
PROCEDURE: XR RIBS LT MIN 3V W CXR1V INDICATIONS: fall TECHNIQUE: 2 views of the left ribs were acquired, along with a single view chest. COMPARISON: None. FINDINGS: Surgical changes and devices: None. Bones and chest wall: No fractures or dislocations. No suspicious bony lesions. Overlying soft tissues appear unremarkable. Lungs and pleura: No pleural effusions or pneumothorax. Lungs appear clear. Mediastinum: Mediastinal contours appear normal. Heart size is normal. IMPRESSION: No acute cardiopulmonary abnormalities or focal airspace disease. No acute, displaced rib fractures identified. Dictated by: Melchor Beasley M.D. on 12/03/2021 at 16:05 Approved by: Melchor Beasley M.D. on 12/03/2021 at 16:05
[2021-12-03 16:32] VITALS: BP 162/89; PULSE 102; RESP 24; O2SAT 98
--- NOTE | 2021-12-03 17:12 | ED.FALL ---
HPI - Fall <BRAEDEN Elena - Last Filed: 12/03/21 17:47> General Chief Complaint: Fall Stated Complaint: FALL RIB PAIN AND BACK PAIN MUSCLE HURTS TO BREATH Time Seen by Provider: 12/03/21 17:01 Source: patient Mode of arrival: Ambulatory History of Present Illness HPI Narrative: 46-year-old female, daily smoker, presents to the emergency department with back pain secondary to falling down 4 steps approximately 8 days ago. Patient denies hitting her head or any loss of consciousness.Patient is a daily smoker with allergic rhinitis, and when she coughs to clear her throat, the pain is worse. Patient has taken some of her leftover muscle relaxers with minimal effect. Related Data Home Medications Medication Instructions Recorded Confirmed ibuprofen 800 mg tablet 800 mg PO BID 06/09/18 10/25/21 Previous Rx's Medication Instructions Recorded methocarbamol 500 mg tablet 500 mg PO DAILY PRN muscle spasm 03/09/20 #30 tabs acetaminophen 500 mg capsule 1,000 mg PO Q6H PRN pain #120 caps 08/29/21 alprazolam 0.5 mg tablet (Xanax) 0.5 mg PO BID PRN anxiety #15 tabs 08/29/21 gabapentin 600 mg tablet 600 mg PO TID #270 tabs 09/25/21 methocarbamol 500 mg tablet 500 mg PO QID PRN back pain #20 12/03/21 tabs oxycodone-acetaminophen 5 mg-325 1 tab PO Q6H PRN pain #10 tabs 12/03/21 mg tablet Allergies Allergy/AdvReac Type Severity Reaction Status Date / Time aspirin [ASPIRIN] Allergy Unknown hives Verified 10/25/21 11:14 rofecoxib [ROFECOXIB] Allergy Unknown vioxx - Verified 10/25/21 11:14 hives Sulfa (Sulfonamide Allergy Unknown Verified 10/25/21 11:14 Antibiotics) [SULFA (SULFONAMIDE ANTIBIOTICS)] Review of Systems <BRAEDEN Elena - Last Filed: 12/03/21 17:47> Review of Systems Narrative: Narrative: GENERAL: Denies chills, fatigue, fever, sweats. See HPI HEENT: Denies sinus pain, ear pain, sore throat, difficulty swallowing, dizziness. RESPIRATORY: Denies dyspnea, wheezing, sputum. CARDIOVASCULAR: Denies chest pain, palpitations, edema. GASTROINTESTINAL: Denies nausea, vomiting, abdominal pain, diarrhea, constipation. : Denies dysuria, frequency, incontinence, hematuria, urinary retention, flank pain. MUSCULOSKELETAL: Denies weakness, joint pain, or bony pain. Thoracic back pain where she fell against the stairs. SKIN: Denies rash, skin lesions, or pruritis. NEUROLOGIC: Denies weakness, dizziness, headache, numbness, confusion. PSYCHIATRIC: No concerning psychosocial issues. 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 Social History Smoking Status: Current every day smoker Tobacco: How many years used: 20 alcohol intake: current (a couple drinks a day) substance use type: marijuana (Occasionally) Smoking Status: Current every day smoker alcohol intake frequency: 0-2 drinks per day Substance Use Type: marijuana Exam <BRAEDEN Elena - Last Filed: 12/03/21 17:47> Narrative Exam Narrative: Exam Narrative: GENERAL: This is a under-nourished, well-developed patient, in no acute distress HEAD: Atraumatic. Normocephalic. EYES: Pupils equal round and reactive. Extraocular motions intact. No scleral icterus, injection or drainage. ENT: Nose without bleeding, purulent drainage. Throat without erythema, tonsillar hypertrophy or exudate. Airway patent. NECK: Trachea midline. No JVD or lymphadenopathy. Nontender. CARDIOVASCULAR: Regular rate and rhythm without murmurs, peripheral pulses intact, cap refill <2 sec. RESPIRATORY: Breath sounds equal and clear bilaterally. No wheezes, rales, or rhonchi. No increased respiratory effort. No accessory muscle use. GASTROINTESTINAL: Abdomen soft, non-tender, nondistended without guarding or rebound. No suprapubic pain. EXTREMITIES: Normal range of motion, no clubbing or edema. Neurovascularly intact. NEURO: A&O x 3. SKIN: Warm, dry, no rashes or lesions noted. Initial Vital Signs Initial Vital Signs: Vital Signs Temperature 97.9 F 12/03/21 15:39 Pulse Rate 119 H 12/03/21 15:39 Respiratory Rate 12/03/21 15:39 Pulse Oximetry 99 12/03/21 15:39 Oxygen Delivery Method 12/03/21 15:39 Back/Spine/Pelvis Other: BACK cloth finishing range back tender but free of any obvious external abnormalities or bruising. There is no asymmetry, swelling, bruising or wound. There is no paraspinal tenderness or CVA tenderness. SI joints nontender. No pain over spinous processes. No symptoms of cauda equina such as saddle anesthesia. Sensation is grossly intact. ROM is limited due to pain. Gait is normal. Heel toe balance is intact. <Soraya Hill DO - Last Filed: 12/04/21 09:38> Initial Vital Signs Initial Vital Signs: Vital Signs Temperature 97.9 F 12/03/21 15:39 Pulse Rate 119 H 12/03/21 15:39 Respiratory Rate 22 12/03/21 15:39 Pulse Oximetry 99 12/03/21 15:39 Oxygen Delivery Method 12/03/21 15:39 Course <BRAEDEN Elena - Last Filed: 12/03/21 17:47> Orders Ordered: Discontinued Medications Ketorolac Tromethamine (Ketorolac 30 Mg/Ml Vial) 30 mg IM NOW ONE Stop: 12/03/21 17:35 Last Admin: 12/03/21 17:51 Dose: 30 mg Documented By: [facility] Vital Signs Vital signs: Vital Signs - 8 hr 12/03/21 15:39 12/03/21 16:32 12/03/21 17:18 Temperature 97.9 F Pulse Rate 119 H 102 H 92 H Respiratory Rate 22 24 26 H Blood Pressure 162/89 H Pulse Oximetry 99 98 97 Oxygen Delivery Method Room Air Room Air Room Air <Soraya Hill DO - Last Filed: 12/04/21 09:38> Orders Ordered: Discontinued Medications Ketorolac Tromethamine (Ketorolac 30 Mg/Ml Vial) 30 mg IM NOW ONE Stop: 12/03/21 17:35 Last Admin: 12/03/21 17:51 Dose: 30 mg Documented By: [facility] Vital Signs Vital signs: Vital Signs - 8 hr 12/03/21 15:39 12/03/21 16:32 12/03/21 17:18 Temperature 97.9 F Pulse Rate 119 H 102 H 92 H Respiratory Rate 22 24 26 H Blood Pressure 162/89 H Pulse Oximetry 99 98 97 Oxygen Delivery Method Room Air Room Air Room Air MDM - Fall <BRAEDEN Elena - Last Filed: 12/03/21 17:47> Differential Diagnosis Differential diagnosis: Likely other (Back pain) Imaging Data Chest x-ray: Radiologist's Impression: [address] [address] XRay Report Signed Patient: Patricia Fiore MR#: [id number] : 1975 Acct:[id number] Age/Sex: 46 / F Date of Service: 12/03/21 Loc: Accession Number: [id number] ?? Procedure: XR ribs LT min 3V w CXR1V Ordering Provider: Soraya Hill D.O. PROCEDURE:? XR RIBS LT MIN 3V W CXR1V ? INDICATIONS:? fall ? TECHNIQUE:? 2 views of the left ribs were acquired, along with a single view chest.? ? COMPARISON:? None. ? FINDINGS:? ? Surgical changes and devices:? None.? ? Bones and chest wall:? No fractures or dislocations.? No suspicious bony lesions.? Overlying soft tissues appear unremarkable.? ? Lungs and pleura:? No pleural effusions or pneumothorax.? Lungs appear clear.? ? Mediastinum:? Mediastinal contours appear normal.? Heart size is normal.? ? IMPRESSION:? No acute cardiopulmonary abnormalities or focal airspace disease. ? No acute, displaced rib fractures identified. ? ? Dictated by: Melchor Beasley M.D. on 12/03/2021 at 16:05 ? ? Approved by: Melchor Beasley M.D. on 12/03/2021 at 16:05 ? MDM Narrative Medical decision making narrative: 46-year-old female who presents to emergency department with back pain secondary to falling down 4 steps approximately 8 days ago. X-ray was negative for rib fracture. Toradol injection provided. We will treat with NSAIDs, muscle relaxers and short course pain medication. Instructed patient to follow up with family doctor by the end of the week for any future medication refills. Discussed plan of care with patient, who is agreeable with course of action. Discharge Plan Departure Patient Disposition: Home Clinical Impression: Back pain Instructions: Thoracic Back Pain Activity Restrictions/Additional Instructions: *You have been diagnosed with back pain secondary to a fall. The x-ray was negative showing that there are no broken ribs. As we discussed, bruised ribs can take just as long to heal and is recommended that you splint that area as much as possible when coughing or sneezing. We have given you a injection of Toradol today and therefore you should not take anymore ibuprofen today. Starting tomorrow morning, you can take ibuprofen 600 mg 3 times a day with food for the next 3-5 days. I will prescribe a limited amount of pain medication and muscle relaxers to help with your discomfort. Please follow-up with your family doctor by the end of the week. *What to do: *Please continue to take your regular medications as directed. [ x] New medication prescriptions sent to your pharmacy: [facility] [ ] New medication written as a paper prescription [ ] No new medications given *Please follow up with your primary care provider in 2-3 days, call for an appointment. Let them know you were seen in the Emergency Department and that we ask that you be seen in follow up. We will electronically transmit a record of today's note if your PCP is in our system *If you do not have a primary care provider please contact the [facility] Resource line at [phone]. They will ask some questions about your medical history and help get you set up with a doctor in the community. ? Return to ER if you should have any new, worsening or concerning symptoms, such as worsening pain, severe headache, confusion, chest pain, difficulty breathing, fever greater than 101 F, shaking chills, persistent vomiting to the point that you cannot drink fluids, or other new or worsening symptoms. Prescriptions: New methocarbamol 500 mg tablet 500 mg PO QID PRN (Reason: back pain) Qty: 20 0RF oxycodone-acetaminophen 5-325 mg tablet 1 tab PO Q6H PRN (Reason: pain) Qty: 10 0RF No Action ibuprofen 800 mg tablet 800 mg PO BID gabapentin 600 mg tablet 600 mg PO TID Qty: 270 3RF methocarbamol 500 mg tablet 500 mg PO DAILY PRN (Reason: muscle spasm) Qty: 30 5RF acetaminophen 500 mg capsule 1,000 mg PO Q6H PRN (Reason: pain) Qty: 120 0RF alprazolam [Xanax] 0.5 mg tablet 0.5 mg PO BID PRN (Reason: anxiety) Qty: 15 0RF Referrals: Pantera Ayala MD [Primary Care Provider] - Visit Report Forms: Patient Portal/API <Soraya Hill DO - Last Filed: 12/04/21 09:38> Cosign ED Attending Cosignature Attestation: I was immediately available in the department for consultation. Documentation has been reviewed. I agree with assessment and plan.
[2021-12-03 17:18] VITALS: PULSE 92; RESP 26; O2SAT 97
[2021-12-03] MEDS: KETOROLAC 30 MG/ML VIAL IM (17:51)
[2021-12-03 18:19] VITALS: BP 155/86; PULSE 100; RESP 24; O2SAT 96
== END 2021-12-03 18:21 | disposition home or self-care (01) ==
PROVIDERS: Emergency Provider Registered Nurse; PCP Student in an Organized Health Care Education/Training Program
DX: M54.9 Dorsalgia, unspecified (principal); W10.9XXA Fall (on) (from) unspecified stairs and steps, initial encounter
CPT/HCPCS: 71101; 96372; 99283; J1885

== ENCOUNTER 2022-11-09 08:01 | Emergency (ER) | payer OTHER, MEDICAID, SELFPAY ==
[2022-11-09 08:10] VITALS: BP 126/81; PULSE 75; RESP 16; TEMP 37; O2SAT 99; BMI 22.8
--- NOTE | 2022-11-09 08:21 | DI.RAD.S_ITS ---
PROCEDURE: XR FOREARM RT 2V INDICATIONS: fall out of bed TECHNIQUE: 2 views of the forearm were acquired. COMPARISON: None. FINDINGS: Bones: Nondisplaced distal ulnar diaphyseal fracture. Normal bone mineralization. Soft tissues: No suspicious soft tissue calcifications or masses. IMPRESSION: Nondisplaced distal ulnar diaphyseal fracture Approved by: Daniel Reyes M.D. on 11/09/2022 at 8:53
--- NOTE | 2022-11-09 09:12 | ED_ITS ---
HPI - Extremity Injury (Upper) General Chief Complaint: Extremity Injury, Upper Stated Complaint: fall, right arm injury Time Seen by Provider: 11/09/22 09:12 Source: patient Mode of arrival: Family Vehicle Limitations: no limitations History of Present Illness HPI narrative: This is a 47-year-old female with history of tobacco use, chronic pain who presents with complaint of fall and right upper extremity injury. Patient states she was sleeping fell out of bed and struck her arm on the night table. She states they are moving so all of her furniture is moved around and they did have some alcoholic drinks last night when they went out for her daughter's graduation. Patient states she has pain over the distal forearm. Patient denies any lacerations. Denies any other injuries, no head or neck pain. No other complaints. Describes little bit tingling of 4th and 5th fingers. Full range of motion sensation to light touch. Patient has non tenderness at the wrist, fingers lower upper extremity. Patient states she does take gabapentin daily for pain, she states there has been some issues with refills secondary to insurance coverage. She does have a refill waiting. She denies any other daily medications. She is had prior neck surgery as well as orthopedic surgeries on his lower extremity. She does smoke daily, she does drink daily, uses marijuana no other illicit. Related Data Previous Rx's Medication Instructions Recorded acetaminophen 500 mg capsule 1,000 mg PO Q6H PRN pain #120 caps 12/14/21 alprazolam 0.5 mg tablet (Xanax) 0.5 mg PO BID PRN anxiety #15 tabs 08/21/22 gabapentin 600 mg tablet 600 mg PO TID #270 tabs 10/30/22 hydrocodone 5 mg-acetaminophen 325 1 tab PO QID PRN pain #10 tabs 11/09/22 mg tablet Allergies Allergy/AdvReac Type Severity Reaction Status Date / Time aspirin [ASPIRIN] Allergy Unknown hives Verified 11/09/22 08:24 rofecoxib [ROFECOXIB] Allergy Unknown vioxx - Verified 11/09/22 08:24 hives Sulfa (Sulfonamide Allergy Unknown Verified 11/09/22 08:24 Antibiotics) [SULFA (SULFONAMIDE ANTIBIOTICS)] Review of Systems Review of Systems ROS Unobtainable: All systems reviewed & are unremarkable except as noted in HPI and below Patient History Medical History Alcoholism in remission Allergic rhinitis (Unknown) Bunion of great toe of right foot Cervical cancer (Unknown) 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 Social History Smoking Status: Current every day smoker Tobacco: How many years used: 20 alcohol intake: current (a couple drinks a day) substance use type: marijuana (Occasionally) Smoking Status: Current every day smoker tobacco type: cigarettes alcohol intake frequency: 0-2 drinks per day Substance Use Type: marijuana Exam Narrative Exam Narrative: GENERAL: Alert and oriented x three, female in rowr-pi-obstaicl distress. HEENT: Head normocephalic, atraumatic, EOMI, pupils reactive, face symmetric, moist mucous membranes NECK: Supple, full range of motion CARDIOVASCULAR: Regular rate and rhythm without murmurs, rubs or gallops. RESPIRATORY: Breath sounds equal bilaterally, no wheezes rales or rhonchi. ABDOMEN: Soft, nontender. Normoactive bowel sounds all 4 quadrants. No guarding or rebound, rigidity, no mass EXTREMITIES: Normal range of motion, no clubbing or edema. Neurovascularly intact. Patient has tenderness over distal forearm just proximal to the wrist by about 5 cm. No obvious deformity. Patient has full range of motion of fingers wrist with normal flexion extension, 80 abduction. Patient has normal motion at the elbow as well as shoulder. 2+ radial pulse. 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 Patient placed in splint by nursing, neurovascularly intact afterwards. NEUROLOGICAL: Cranial nerves II through XII grossly intact. Moving all extremities SKIN: Warm, dry, no petechiae, no rashes or lesions otherwise noted. Initial Vital Signs Initial Vital Signs: Vital Signs Temperature 98.6 F 11/09/22 08:10 Pulse Rate 75 11/09/22 08:10 Respiratory Rate 16 11/09/22 08:10 Blood Pressure 126/81 11/09/22 08:10 Pulse Oximetry 99 11/09/22 08:10 Oxygen Delivery Method Room Air 11/09/22 08:10 Course Orders Ordered: Discontinued Medications Hydrocodone Bitart/Acetaminophen (Hydrocodone/Acet 5/325 Tablet) 1 tab PO NOW ONE Stop: 11/09/22 09:53 Last Admin: 11/09/22 10:10 Dose: 1 tab Documented By: CTS Vital Signs Vital signs: Vital Signs - 8 hr 11/09/22 08:10 Temperature 98.6 F Pulse Rate 75 Respiratory Rate 16 Blood Pressure 126/81 Pulse Oximetry 99 Oxygen Delivery Method Room Air MDM - Extremity Injury (Upper) Imaging Data Extremity x-ray #1: Radiologist's Impression: Close Forearm X-Ray (Signed) Daniel Reyes - 11/09/22 Ribs X-Ray (Signed) Melchor Beasley - 12/03/21 Mammogram Screening (Signed) Cosme Denney - 07/05/20 Cervical Spine MRI (Signed) Tian Glass - 06/02/[address] (Signed) Jim Saul - 03/14/20 Ankle X-Ray (Signed) Juvencio Dempsey - 03/09/20 Pelvis X-Ray (Signed) Filipe Llanes - 03/05/[address] (Signed) Filipe Llanes - 03/05/19 Chest/Abdomen/Pelvis CT (Signed) Filipe Llanes - 03/05/19 Chest X-Ray (Signed) Filipe Llanes - 03/05/[address] (Signed) Filipe Llanes - 03/05/[address] (Signed) Filipe Llanes - 03/05/[address] (Signed) Duarte Gibson - 10/27/[address] (Signed) Duarte Gibson - 10/27/18 Chest X-Ray (Signed) QuanTian - 03/31/[address] (Signed) Duarte Gibson - 03/02/18 Launch?[address] [address] XRay Report Signed Patient: Patricia Fiore MR#: [id number] : 1975 Acct:[id number] Age/Sex: 47 / F Date of Service: 11/09/22 Loc: ED Accession Number: [id number] ?? Procedure: XR forearm RT 2V Ordering Provider: Varsha Shannon D.O. PROCEDURE:? XR FOREARM RT 2V ? INDICATIONS:? fall out of bed ? TECHNIQUE:? 2 views of the forearm were acquired.? ? COMPARISON:? None. ? FINDINGS:? ? Bones:? Nondisplaced distal ulnar diaphyseal fracture.? Normal bone mineralization. ? Soft tissues:? No suspicious soft tissue calcifications or masses.? ? ? IMPRESSION:? ? Nondisplaced distal ulnar diaphyseal fracture ? Approved by: Daniel Reyes M.D. on 11/09/2022 at 8:53? MDM Narrative Medical decision making narrative: 47-year-old female with injury to left forearm with ulnar. Patient states she had a fall she does not describe any trauma or assault. Patient is neurovascularly intact. Splint was placed in the emergency department. Patient is given referral for Orthopedic surgery, splint with improvement of discomfort. Short course of pain medication as needed. We did discuss return precautions signs or symptoms watch for. Discharge Plan Departure Patient Disposition: Home Clinical Impression: Forearm fracture Instructions: DI for Forearm Fracture Activity Restrictions/Additional Instructions: Your imaging today does show a fracture of the bone in your forearm. Follow-up with orthopedic surgery in the next week for recheck, please call Friday morning for an appointment. Referral number is included below. You may take Tylenol up to a 1000 mg every 6 hours, if this is an adequate you may take Sula instead of Tylenol but not both at the same time. You may take Sula 1 tablet every 6 hours as needed for pain. This medication can make you sleepy do not drive, perform hazardous activities or make any major decisions while taking it. This medication will make you constipated please take a stool softener once to twice daily until stools are soft and regular. Prescription sent to [facility] Splint Care: Keep splint clean and dry. Elevated affected body part to decrease swelling. OK to use ice pack on the affected body part. Use for 15-20 minutes each time, for 5-6x per day. If you develop worsening pain, numbness, tingling, discoloration of the affected body part, loosen the splint by loosening the DUNIA wrap, and either see your doctor for an urgent re-assessment, or return to the Emergency Department. Return to the Emergency Department for any new or worsening symptoms. Prescriptions: New hydrocodone-acetaminophen 5-325 mg tablet 1 tab PO QID PRN (Reason: pain) Qty: 10 0RF No Action acetaminophen 500 mg capsule 1,000 mg PO Q6H PRN (Reason: pain) Qty: 120 1RF gabapentin 600 mg tablet 600 mg PO TID Qty: 270 0RF alprazolam [Xanax] 0.5 mg tablet 0.5 mg PO BID PRN (Reason: anxiety) Qty: 15 5RF Referrals: Pantera Ayala MD [Primary Care Provider] - Ananya Geller MD [Physician] - Stand Alone Forms: Patient Portal/API
[2022-11-09] MEDS: HYDROCODONE/ACET 5/325 TABLET 1 TAB PO (10:10)
[2022-11-09 10:14] VITALS: BP 117/70; PULSE 74; RESP 16; O2SAT 97
== END 2022-11-09 10:14 | disposition home or self-care (01) ==
PROVIDERS: Emergency Provider Emergency Medicine; PCP Student in an Organized Health Care Education/Training Program
DX: S59.001A Unspecified physeal fracture of lower end of ulna, right arm, initial encounter for closed fracture (principal); W06.XXXA Fall from bed, initial encounter
CPT/HCPCS: 29125; 73090; 99284

== ENCOUNTER → 2023-06-03 13:19 | Outpatient (CLI) | payer OTHER, MEDICAID, SELFPAY ==
--- NOTE | 2023-06-03 13:21 | DI.RAD.S_ITS ---
PROCEDURE: XR TIBIA FIBULA LT 2V INDICATIONS: leg pain and bruising after fall TECHNIQUE: 2 views of the tibia and fibula were acquired. COMPARISON: [facility], , TIB/FIB 2V RIGHT, 09/06/2017, 1:16. FINDINGS: Bones: No fractures or dislocations. Osteoarthritic changes in left knee joints are seen. No suspicious bony lesions. Soft tissues: No suspicious soft tissue calcifications or masses. IMPRESSION: No acute left lower leg fracture or dislocation. Left knee joint osteoarthritis. Dictated by: Marcus Gandara M.D. on 06/03/2023 at 15:02 Approved by: Marcus Gandara M.D. on 06/03/2023 at 15:02
--- NOTE | 2023-06-03 13:21 | DI.RAD.S_ITS ---
PROCEDURE: XR ANKLE LT MIN 3V INDICATIONS: leg pain and bruising after fall TECHNIQUE: 3 views of the ankle were acquired. COMPARISON: [facility], CR, XR ANKLE RT MIN 3V, 03/09/2020, 13:44. FINDINGS: Bones: No fractures or dislocations. Ankle mortise is normally aligned. No suspicious bony lesions. Soft tissues: Mild ankle soft tissue swelling is seen. No tibiotalar joint effusion. Achilles tendon appears normal. IMPRESSION: No acute left ankle fracture or dislocation. Mild ankle soft tissue swelling. No significant joint effusion. Dictated by: Marcus Gandara M.D. on 06/03/2023 at 15:02 Approved by: Marcus Gandara M.D. on 06/03/2023 at 15:03
--- NOTE | 2023-06-03 13:21 | DI.RAD.S_ITS ---
PROCEDURE: XR FOOT LT MIN 3V INDICATIONS: leg pain and bruising after fall TECHNIQUE: 3 views of the foot were acquired. COMPARISON: [facility], , FOOT 3V RIGHT, 09/06/2017, 1:16. FINDINGS: Bones: No fractures or dislocations. There is [id number] hallux valgus. Mild forefoot joint osteoarthritic changes are seen more notably at 1st MTP joint. No suspicious bony lesions. Soft tissues: No tibiotalar joint effusion. Achilles tendon appears normal. IMPRESSION: No acute left foot fracture or dislocation. Sllh-ei-kvoacxnp hallux valgus. Mild forefoot joint osteoarthritis. Dictated by: Marcus Gandara M.D. on 06/03/2023 at 14:59 Approved by: Marcus Gandara M.D. on 06/03/2023 at 15:02
== END ==
LOC: RAD 13:21
PROVIDERS: PCP Family Medicine; Referring Provider Physician Assistant; Visit Provider Physician Assistant
DX: M19.072 Primary osteoarthritis, left ankle and foot (principal); M17.12 Unilateral primary osteoarthritis, left knee; M20.12 Hallux valgus (acquired), left foot; M79.605 Pain in left leg; M79.89 Other specified soft tissue disorders
CPT/HCPCS: 73590; 73610; 73620

== ENCOUNTER → 2023-07-31 14:10 | Outpatient (CLI) | payer OTHER, MEDICAID, SELFPAY ==
--- NOTE | 2023-07-31 14:15 | DI.RAD.S_ITS ---
PROCEDURE: XR CHEST 2V INDICATIONS: GLF, persistent pain right side TECHNIQUE: 2 views of the chest were acquired. COMPARISON: [facility], CR, XR CHEST 2V, 03/31/2018, 13:33. [facility], CR, XR CHEST 1V, 03/05/2019, 1:19. FINDINGS: Surgical changes and devices: None. Lungs and pleura: Lungs are clear. No pleural effusions or pneumothorax. Mediastinum: Mediastinal contours are normal. Heart size is normal. Bones and chest wall: No suspicious bony abnormalities. Soft tissues appear unremarkable. IMPRESSION: No acute cardiopulmonary disease. Dictated by: Dustin Hill Stephen Interpreted: Grayson Matt MD on 07/31/2023 at 14:58 Transcribed by: PAULINE on 07/31/2023 at 14:58 Approved by: Grayson Matt M.D. on 07/31/2023 at 20:36
[2023-07-31 15:14] LABS: Add Manual Diff / Slide Review NO; Basophils Absolute Auto 0 /uL (0-100); Basophils Percent Auto 0.5 % (0-2); Eosinophils Absolute Auto 100 /uL (0-450); Eosinophils Percent Auto 2.6 % (2-4); Hematocrit 40.8 % (36-46); Hemoglobin 14.1 g/dL (12.0-16.0); Lymphocytes Absolute Auto 1900 /uL (1100-4500); Mean Corpuscular HGB Conc 34.6 % (30-36); Mean Corpuscular Hemoglobin 39.8 PG (26-34); Monocytes Absolute Auto 500 /uL (0-900); Monocytes Percent Auto 11.1 % (3-14); Neutrophils Absolute Auto 1900 /uL (1500-7000); Neutrophils Percent Auto 42.8 % (50-75); Platelet Count 92 X10^3/uL (150-400); Red Blood Cell Count 3.55 X10^6/uL (4.0-5.2); Red Cell Distribution Width 14.3 % (11.6-14.8); White Blood Cell Count 4.4 X10^3/uL (4.5-11.0)
[2023-07-31 15:56] LABS: Macrocytosis 2+
[2023-07-31 15:59] LABS: Alanine Aminotransferase 37 IU/L (<35); Albumin 3.9 g/dL (3.5-5.0); Albumin Globulin Ratio 0.9 (1.0-2.8); Alkaline Phosphatase 142 U/L (38-126); Aspartate Aminotransferase 118 IU/L (14-36); BUN Creatinine Ratio 20.5 (6-22); Bilirubin Total 1.7 mg/dL (0.2-1.3); Blood Urea Nitrogen 9 mg/dL (7-17); Calcium 9.2 mg/dL (8.4-10.2); Carbon Dioxide 25 mmol/L (22-32); Chloride 105 mmol/L (98-107); Cholesterol 152 mg/dL (140-199); Estimated Glomerular Filt Rate > 60 mL/min (>60); Globulin 4.5 g/dL (1.7-4.1); Glucose 154 mg/dL (70-100); HDL Cholesterol 17 mg/dL (40-60); HEMOLYSIS < 15 (0-50); LDL Cholesterol Calculated 109 mg/dL (<100); Potassium 4.2 mmol/L (3.4-5.1); Sodium 136 mmol/L (137-145); Total Protein 8.4 g/dL (6.3-8.2); Triglycerides 131 mg/dL (35-150)
[2023-07-31 16:35] LABS: Hemoglobin A1C% w Est Avg Glu 5.7 % (4.0-6.0)
[2023-07-31 16:38] LABS: UR Morphine/Opiate cutoff 300 Negative (Negative); Ur Creatinine Normal (Normal); Ur Specific Gravity Normal (Normal); Urine Amphetamines Negative (Negative); Urine Barbiturates Negative (Negative); Urine Benzodiazepines Negative (Negative); Urine Cocaine Negative (Negative); Urine MDMA Negative (Negative); Urine Methadone Negative (Negative); Urine Methamphetamines Negative (Negative); Urine Oxycodone Negative (Negative); Urine Phencyclidine Negative (Negative); Urine Tetrahydrocannabinol Positive (Negative); Urine Tricyclic Antidepressant Negative (Negative); Urine pH Normal (Normal)
[2023-07-31 16:41] LABS: Vitamin B12 Reflex MMA if <400 962 pg/mL (239-931)
[2023-08-06 09:16] LABS: Vitamin B1 99.4 nmol/L (66.5-200.0)
== END ==
PROVIDERS: PCP Family Medicine; Referring Provider Family Medicine; Visit Provider Family Medicine
DX: R07.81 Pleurodynia (principal); F10.90 Alcohol use, unspecified, uncomplicated; R74.8 Abnormal levels of other serum enzymes; F11.20 Opioid dependence, uncomplicated; Z79.899 Other long term (current) drug therapy
CPT/HCPCS: 36415; 71046; 80053; 80061; 80305; 82607; 83036; 84425; 85025

== ENCOUNTER → 2023-08-11 06:59 | Outpatient (CLI) | payer OTHER, MEDICAID, SELFPAY ==
--- NOTE | 2023-08-11 07:00 | DI.US.S_ITS ---
PROCEDURE: US ABDOMEN LIMITED INDICATIONS: Liver focus - abnormal liver labs TECHNIQUE: Real-time focused scanning was performed of the abdomen, with image documentation. COMPARISON: [facility], CT, CT CHEST ABD PEL W CON, 03/05/2019, 1:21. FINDINGS: Liver measures 16.9 cm with mild steatosis. Small mobile foci of increased echogenicity are present within the lumen. Wall thickness is normal measuring 1.4 mm. Common bile duct measures 5.1 mm. Focus of decreased echogenicity is present in the pancreatic body measuring 7 x 7 x 9 mm. No definitive area corresponding to this region is identified on the CT of 2019. IMPRESSION: Steatosis. Focus of decreased echogenicity within the pancreatic body without priors demonstrating abnormality. Further evaluation with CT/MRI with pancreatic protocol or interval follow-up with ultrasound may be obtained as indicated. It is considered indeterminate on the basis of this exam. Dictated by: Jazmin Pham M.D. on 08/11/2023 at 13:51 Approved by: Jazmin Pham M.D. on 08/11/2023 at 13:53
== END ==
LOC: US 06:59
PROVIDERS: PCP Family Medicine; Referring Provider Family Medicine; Visit Provider Family Medicine
DX: K76.0 Fatty (change of) liver, not elsewhere classified (principal); R74.8 Abnormal levels of other serum enzymes; F10.90 Alcohol use, unspecified, uncomplicated
CPT/HCPCS: 76705

== ENCOUNTER → 2023-08-25 14:11 | Outpatient (CLI) | payer OTHER, MEDICAID, SELFPAY ==
--- NOTE | 2023-08-25 14:14 | DI.MG.S_ITS ---
BILATERAL DIGITAL SCREENING MAMMOGRAM 3D/2D WITH CAD: 08/25/2023 CLINICAL: Routine screening. Family history of breast cancer. Comparison is made to exams dated: 07/05/2020 mammogram and 11/13/2015 mammogram - [facility]. Both breasts are extremely dense, which lowers the sensitivity of mammography (category d />75% glandular tissue). Current study was also evaluated with a Computer Aided Detection (CAD) system. No significant masses, calcifications, or other findings are seen in either breast. There has been no significant interval change. IMPRESSION: NEGATIVE There is no mammographic evidence of malignancy. A 1 year screening mammogram is recommended. Based on the Tyrer Cuzick model (a risk assessment model) the patient's lifetime risk is 6.9% and her 10 year risk is 1.5%. According to the ACR, ACS, and NCCN guidelines, an annual breast MRI exam along with mammogram is recommended if the patient's lifetime risk is 20% or greater. This exam was interpreted at Station ID: [id number]. NOTE: For mammograms, a report in lay terms will be sent to the patient. Approximately 15% of breast malignancies will not be visualized mammographically. In the management of a palpable breast mass, a negative mammogram must not discourage biopsy of a clinically suspicious lesion. Electronically Signed By: Tomy parry/celso:08/26/2023 11:19:46 letter sent: Normal Exam ACR BI-RADS Category 1: Negative [id number]
--- NOTE | 2023-08-25 15:00 | DI.CT.S_ITS ---
PROCEDURE: CT ABDOMEN PANCREATIC PROTOCOL INDICATIONS: increased echogenicity of pancreas on US TECHNIQUE: Both before and after the administration of intravenous contrast, 3 mm thick pancreatic-phase images acquired from the diaphragm to the iliac crests. 3 mm thick coronal and sagittal reformats were performed. For radiation dose reduction, the following was used: automated exposure control, adjustment of mA and/or kV according to patient size. COMPARISON: [facility], US, US ABDOMEN LIMITED, 08/11/2023, 7:28. FINDINGS: Image quality: Diagnostic. Lower chest: Unremarkable. ABDOMEN: Pancreas: The pancreas is normal size and overall density. There is a unilocular circumscribed ovoid cystic lesion in the proximal tail of the pancreas with precontrast Hounsfield units of 19 and postcontrast density of 27, essentially nonenhancing. This measures 0.8 x 0.7 cm. No visible septation or mural nodularity. No visible connection to the pancreatic duct which remains nondilated. Liver: Enlarged and moderately steatotic. Indistinct focal arterial enhancement inferiorly in segment four B measures about 0.7 cm. This follows blood pool on portal venous phase. This is likely a small flash fill hemangioma. The liver margin is lobulated. There is recanalization of the umbilical vein. Gallbladder: Dependent nonobstructing cholelithiasis near the fundus. No wall thickening. Biliary ducts: No biliary dilation. Adrenal Glands: No nodules. Spleen: Size is within normal limits. Kidneys and Ureters: No hydronephrosis. No solid mass. No complex renal cystic lesion which requires follow up. Stomach and Bowel: Small distal esophageal varices. Stomach and visible bowel loops are within normal limits given partial decompression. Peritoneum: No abnormal intraperitoneal fluid. No free air. Ventral Wall: No hernia. Increased periumbilical anterior abdominal wall varicosities. Superior epigastric varicosities. Abdominal Nodes: No retroperitoneal or mesenteric adenopathy by size criteria. Vessels: Small developing varicosities throughout the mesentery and omentum. Prominent left gonadal vein and attenuated splenic vein. Normal caliber IVC and aorta. Normal caliber portal vein.. Bones: No aggressive osseous abnormality. IMPRESSION: Subcentimeter cyst in the proximal pancreatic tail without suspicious features at this point. Differential diagnosis includes pseudocyst, side-branch IPMN, or other cystic neoplasm. This lesion has grown since the prior exam in 2019. Follow-up cross-sectional imaging, CT or MRI in one year to reassess size. Hepatic steatosis, hepatomegaly, and developing upper abdominal varices. Dictated by: Elizabeth Olea M.D. on 08/25/2023 at 16:59 Approved by: Elizabeth Olea M.D. on 08/25/2023 at 17:14
[2023-08-25 17:36] LABS: INR 1.5 (0.9-1.3); Prothrombin Time 16.8 SECONDS (9.4-12.5)
[2023-08-25 17:41] LABS: HEMOLYSIS < 15 (0-50); Iron 271 ug/dL (37-170)
[2023-08-25 17:43] LABS: Lipase 171 U/L (23-300); Magnesium 1.3 mg/dL (1.6-2.3)
[2023-08-25 17:53] LABS: Total Iron Binding Capacity 281 ug/dL (265-497); Transferrin 203 mg/dL (206-381)
[2023-08-25 17:56] LABS: Percent Iron Saturation 96 % (15-50)
[2023-08-25 18:13] LABS: TSH w/ Reflex to FT4 1.41 uIU/mL (0.47-4.68)
== END ==
PROVIDERS: PCP Family Medicine; Referring Provider Family Medicine; Visit Provider Family Medicine
DX: Q45.3 Other congenital malformations of pancreas and pancreatic duct (principal); K86.2 Cyst of pancreas; K76.0 Fatty (change of) liver, not elsewhere classified; R74.8 Abnormal levels of other serum enzymes; F10.90 Alcohol use, unspecified, uncomplicated; Z12.31 Encounter for screening mammogram for malignant neoplasm of breast; Z80.3 Family history of malignant neoplasm of breast; R92.343 Mammographic extreme density, bilateral breasts; M25.50 Pain in unspecified joint; M79.10 Myalgia, unspecified site; F17.200 Nicotine dependence, unspecified, uncomplicated
CPT/HCPCS: 36415; 74170; 77063; 77067; 83540; 83550; 83690; 83735; 84443; 85610; Q9967

== ENCOUNTER → 2023-09-30 07:49 | Outpatient (CLI) | payer OTHER, MEDICAID, SELFPAY ==
--- NOTE | 2023-09-30 07:50 | DI.CT.S_ITS ---
PROCEDURE: CT HEAD/BRAIN WO CON INDICATIONS: ground level fall/loss of consciousness TECHNIQUE: Noncontrast 4.5 mm thick angled axial sections acquired from the foramen magnum to the vertex, with coronal and sagittal reformats. For radiation dose reduction, the following was used: automated exposure control, adjustment of mA and/or kV according to patient size. COMPARISON: [facility], CT, CT HEAD/BRAIN WO CON, 03/05/2019, 1:21. FINDINGS: Image quality: Diagnostic. CSF spaces: Basal cisterns are patent. No extra-axial fluid collections. Ventricles are normal in size and shape. Brain: No midline shift. No intracranial masses or hemorrhage. Rosales-white matter interface is normal. Skull and face: Calvarium and visualized facial bones are intact, without suspicious lesions. Sinuses: Visualized sinuses and mastoids are clear. IMPRESSION: No acute intracranial pathology. Dictated by: Jazmin Pham M.D. on 09/30/2023 at 9:16 Approved by: Jazmin Pham M.D. on 09/30/2023 at 9:16
== END ==
PROVIDERS: PCP Family Medicine; Referring Provider Family Medicine; Visit Provider Family Medicine
DX: R40.20 Unspecified coma (principal); W18.30XA Fall on same level, unspecified, initial encounter
CPT/HCPCS: 70450

== ENCOUNTER → 2024-01-07 10:25 | Outpatient (CLI) | payer OTHER, MEDICAID, SELFPAY ==
--- NOTE | 2024-01-07 10:26 | DI.US.S_ITS ---
PROCEDURE: US CAROTID DOPPLER BI INDICATIONS: ongoing concerns, tinnitus TECHNIQUE: Color and pulse Doppler interrogation was performed of both carotid systems, with image documentation and velocity measurements. COMPARISON: None. FINDINGS: Stenosis calculations are based on SRU (Society of Radiologists in Ultrasound) criteria. Right side: Brachial blood pressure: 120/76 mm Hg. Common carotid artery peak systolic velocity: 70 cm/sec. Internal carotid artery peak systolic velocity: 67 cm/sec. Internal carotid artery end diastolic velocity: 32 cm/sec. External carotid artery peak systolic velocity: 85 cm/sec. ICA/CCA peak systolic ratio: 1.0. Rosales scale imaging description: No significant plaque. Percent internal carotid artery stenosis: Less than 50%. Vertebral artery: Flow direction is antegrade. Left side: Brachial blood pressure: 120/81 mm Hg. Common carotid artery peak systolic velocity: 54 cm/sec. Internal carotid artery peak systolic velocity: 91 cm/sec. Internal carotid artery end diastolic velocity: 48 cm/sec. External carotid artery peak systolic velocity: 61 cm/sec. ICA/CCA peak systolic ratio: 1.7. Rosales scale imaging description: No significant plaque. Percent internal carotid artery stenosis: Less than 50%. Vertebral artery: Flow direction is antegrade. IMPRESSION: 1. Right ICA: Less than 50 % stenosis. 2. Left ICA: Less than 50 % stenosis. 3. Antegrade flow in the bilateral vertebral arteries. Dictated by: Grayson Matt M.D. on 01/08/2024 at 22:12 Approved by: Grayson Matt M.D. on 01/08/2024 at 22:14
== END ==
LOC: US 10:26
PROVIDERS: PCP Family Medicine; Referring Provider Family Medicine; Visit Provider Family Medicine
DX: I65.23 Occlusion and stenosis of bilateral carotid arteries (principal); I86.8 Varicose veins of other specified sites; K76.0 Fatty (change of) liver, not elsewhere classified; F17.200 Nicotine dependence, unspecified, uncomplicated; F10.90 Alcohol use, unspecified, uncomplicated; F11.20 Opioid dependence, uncomplicated
CPT/HCPCS: 93880

== ENCOUNTER → 2024-03-23 08:24 | Outpatient (CLI) | payer OTHER, MEDICAID, SELFPAY ==
--- NOTE | 2024-03-23 08:25 | DI.US.S_ITS ---
PROCEDURE: US ABDOMEN LIMITED INDICATIONS: HEPATIC STEATOSIS TECHNIQUE: Real-time focused scanning was performed of the abdomen, with image documentation. COMPARISON: [facility], US, US ABDOMEN LIMITED, 08/11/2023, 7:28. FINDINGS: Liver is echogenic measuring 18 cm. Cholelithiasis without sonographic Peguero sign. No significant wall thickening. CBD measures 5 mm, within normal limits. A cystic lesion is seen at the pancreatic body measuring 8 mm, previously 7-9 mm, similar. IMPRESSION: Increased hepatic echogenicity, nonspecific on ultrasound, though most commonly seen with steatosis. Cholelithiasis without ductal dilation or sonographic Peguero sign. Similar cystic lesion at the pancreatic body measuring 8 mm. Consider continued follow-up, mentioned on prior CT Dictated by: Tre Hargrove M.D. on 03/23/2024 at 13:39 Approved by: Tre Hargrove M.D. on 03/23/2024 at 13:41
== END ==
PROVIDERS: PCP Family Medicine; Referring Provider Family Medicine; Visit Provider Family Medicine
DX: K86.9 Disease of pancreas, unspecified (principal); K80.20 Calculus of gallbladder without cholecystitis without obstruction; K76.0 Fatty (change of) liver, not elsewhere classified; R74.8 Abnormal levels of other serum enzymes; F10.90 Alcohol use, unspecified, uncomplicated; R16.0 Hepatomegaly, not elsewhere classified; I86.8 Varicose veins of other specified sites
CPT/HCPCS: 76705

== ENCOUNTER → 2024-08-20 07:56 | Outpatient (CLI) | payer OTHER, SELFPAY ==
--- NOTE | 2024-08-20 07:58 | DI.CT.S_ITS ---
PROCEDURE: CT ABDOMEN PANCREATIC PROTOCOL INDICATIONS: F/u CT (08/2023) showing suspicous cyst pancreatic tail TECHNIQUE: Both before and after the administration of intravenous contrast, 3 mm thick pancreatic-phase images acquired from the diaphragm to the iliac crests. 3 mm thick coronal and sagittal reformats were performed. For radiation dose reduction, the following was used: automated exposure control, adjustment of mA and/or kV according to patient size. COMPARISON: [facility], CT, CT ABDOMEN PANCREATIC PROTOCOL, 08/25/2023, 14:55. FINDINGS: Image quality: Diagnostic Lower chest: Lung bases appear unremarkable. Normal heart size Liver: Mild hepatic steatosis hypervascular lesion in segment 4 B is similar, probably a small hemangioma or cyst shunt. Slightly nodular contour. Gallbladder and biliary system: Cholelithiasis, nondilated Pancreas: No ductal dilation. 0.6 cm pancreatic body cystic lesion is slightly smaller, previously 0.8 cm. Spleen: Nonenlarged Adrenals: No discrete nodules Kidneys: There are subcentimeter renal lesions, too small to characterize, typically cysts. Vessels and lymph nodes: Recanalization of the paraumbilical vein. No pathologic lymph nodes by size criteria. Atherosclerotic calcifications. No abdominal aortic aneurysm. Bowel and peritoneum: No small bowel obstruction. No drainable ascites. Body wall: Unremarkable Bones: No aggressive appearing osseous abnormality. IMPRESSION: Pancreatic body cystic lesion measuring 0.6 cm is slightly smaller than prior imaging, no aggressive features suggest enhancing nodule or ductal dilation. Additional follow-up may be obtained in 1 year. Slightly nodular liver with steatosis. Recanalization of the paraumbilical vein implies portal hypertension. Other findings above. Dictated by: Tre Hargrove M.D. on 08/20/2024 at 13:46 Approved by: Tre Hargrove M.D. on 08/20/2024 at 13:51
[2024-08-20 08:26] LABS: Alanine Aminotransferase 27 IU/L (<35); Albumin 3.9 g/dL (3.5-5.0); Albumin Globulin Ratio 1.1 (1.0-2.8); Alkaline Phosphatase 228 U/L (38-126); Aspartate Aminotransferase 62 IU/L (14-36); BUN Creatinine Ratio 27.9 (6-22); Bilirubin Total 0.9 mg/dL (0.2-1.3); Blood Urea Nitrogen 12 mg/dL (7-17); Calcium 9.3 mg/dL (8.4-10.2); Carbon Dioxide 23 mmol/L (22-32); Chloride 107 mmol/L (98-107); Estimated Glomerular Filt Rate > 60 mL/min (>60); Globulin 3.7 g/dL (1.7-4.1); Glucose 136 mg/dL (70-100); HEMOLYSIS < 15 (0-50); Sodium 139 mmol/L (137-145); Total Protein 7.6 g/dL (6.3-8.2)
[2024-08-20 09:20] LABS: Add Manual Diff / Slide Review NO; Basophils Absolute Auto 100 /uL (0-100); Basophils Percent Auto 1.2 % (0-2); Eosinophils Absolute Auto 300 /uL (0-450); Eosinophils Percent Auto 4.8 % (2-4); Hematocrit 41.3 % (36-46); Hemoglobin 14.4 g/dL (12.0-16.0); Lymphocytes Absolute Auto 3100 /uL (1100-4500); Mean Corpuscular HGB Conc 34.8 % (30-36); Mean Corpuscular Hemoglobin 38.1 PG (26-34); Mean Corpuscular Volume 109.5 fL (80-100); Monocytes Absolute Auto 800 /uL (0-900); Monocytes Percent Auto 11.5 % (3-14); Neutrophils Absolute Auto 2500 /uL (1500-7000); Neutrophils Percent Auto 36.5 % (50-75); Platelet Count 132 X10^3/uL (150-400); Red Blood Cell Count 3.77 X10^6/uL (4.0-5.2); Red Cell Distribution Width 15.5 % (11.6-14.8); White Blood Cell Count 6.8 X10^3/uL (4.5-11.0)
[2024-08-20 12:00] LABS: HEMOLYSIS < 15 (0-50); Iron 229 ug/dL (37-170)
[2024-08-20 12:12] LABS: Total Iron Binding Capacity 269 ug/dL (265-497); Transferrin 191 mg/dL (206-381)
[2024-08-20 12:18] LABS: Percent Iron Saturation 85 % (15-50)
[2024-08-20 14:15] LABS: Cholesterol 142 mg/dL (140-199); HDL Cholesterol 25 mg/dL (40-60); LDL Cholesterol Calculated 86 mg/dL (<100); Magnesium 1.2 mg/dL (1.6-2.3); Triglycerides 155 mg/dL (35-150)
== END ==
PROVIDERS: PCP Family Medicine; Referring Provider Family Medicine; Visit Provider Family Medicine
DX: K86.2 Cyst of pancreas (principal); K80.20 Calculus of gallbladder without cholecystitis without obstruction; K76.0 Fatty (change of) liver, not elsewhere classified; F10.90 Alcohol use, unspecified, uncomplicated; R74.8 Abnormal levels of other serum enzymes; R16.0 Hepatomegaly, not elsewhere classified; I86.8 Varicose veins of other specified sites; E83.19 Other disorders of iron metabolism; E83.42 Hypomagnesemia; Z13.220 Encounter for screening for lipoid disorders; Z91.199 Patient's noncompliance with other medical treatment and regimen due to unspecified reason
CPT/HCPCS: 36415; 74170; 80053; 80061; 83540; 83550; 83735; 85025; Q9967

== ENCOUNTER → 2024-11-04 15:36 | Outpatient (CLI) | payer OTHER, SELFPAY ==
--- NOTE | 2024-11-04 15:37 | DI.MRI.S_ITS ---
PROCEDURE: MR THORACIC SPINE WO CON INDICATIONS: Hyperreflexia, spondylolsisthesis TECHNIQUE: Noncontrast sagittal T1 spine echo and T2 fast spin echo, sagittal STIR, and T2 fast spin echo through the thoracic spine. COMPARISON: [facility], CT, CT CHEST ABD PEL W CON, 03/05/2019, 1:21. [facility], MR, MR CERVICAL SPINE WO CON, 11/04/2024, 15:49. FINDINGS: Image quality: Excellent. Alignment and Curvature: Accentuated thoracic kyphosis is seen. No focal AP alignment abnormality is seen. Bone Marrow: Marrow is of normal overall signal. No acute vertebral body compression fractures. Spinal Cord: Visualized spinal cord is normal in size and signal. Paraspinous Soft Tissues: No paravertebral masses. Miscellaneous: No significant neural foraminal or central canal narrowing can be seen. IMPRESSION: No imaging explanation is found for this patient's presenting symptoms. No significant neural foraminal or central canal narrowing can be seen. Dictated by: Duarte Gibson M.D. on 11/04/2024 at 16:40 Approved by: Duarte Gibson M.D. on 11/04/2024 at 16:42
--- NOTE | 2024-11-04 15:37 | DI.MRI.S_ITS ---
PROCEDURE: MR CERVICAL SPINE WO CON INDICATIONS: Hyperreflexia, spondylolisthesis TECHNIQUE: Noncontrast sagittal T1 spin echo and T2 fast spin echo, sagittal STIR, foraminal oblique sagittal T2 fast spin echo, and axial gradient echo or T2 fast spin echo through the cervical spine. COMPARISON: [facility], CT, CT CERVICAL SPINE WO CON, 03/14/2020, 13:25. [facility], MR, MR CERVICAL SPINE WO CON, 06/02/2020, 15:44. [facility], MR, MR THORACIC SPINE WO CON, 11/04/2024, 15:49. [facility], CR, XR CERVICAL SPINE WITH FLEXION EXTENSION, 10/19/2024, 14:59. (Additional prior imaging is not available for review from the archive at the time of this dictation.) FINDINGS: Image quality: This examination is limited by involuntary motion artifact. Alignment and Curvature: There is mild anterolisthesis seen at C3-C4, C5-C6, C6-C7, and C7-T1. Bone Marrow: Marrow demonstrates normal overall signal. Spinal Cord: Visualized spinal cord has normal size and signal. No cerebellar tonsillar herniation. Paraspinous Soft Tissues: No paravertebral masses. Prevertebral soft tissues are normal in thickness. C2-C3: No significant abnormality is seen. C3-C4: Mild loss of disc height is seen. Loss of disc signal is seen. A mild degree of generalized disc osteophyte complex is seen. There is at least moderate right- sided and moderate left-sided neural foraminal narrowing. There is moderate right-sided and [id number] left-sided neural foraminal narrowing. No central canal narrowing is seen. These imaging findings have progressed compared to the prior study. C4-C5: [id number] loss of disc height and disc signal can be seen. A mild degree of generalized disc osteophyte complex is seen. Mild facet joint hypertrophy is seen. There is moderate left-sided and mild right-sided neural foraminal narrowing. No central canal narrowing is seen. These imaging findings have progressed compared to the prior study. C5-C6: The disc height and disk signal are relatively well-preserved. A mild degree of generalized disc osteophyte complex is seen. Moderate facet joint hypertrophy is seen. There is at least moderate right-sided and moderate left-sided neural foraminal narrowing. No central canal narrowing is seen. C6-C7: Mild to moderate loss of disc height is seen. Loss of disc signal is seen. A mild degree of generalized disc osteophyte complex is seen. Moderate facet joint hypertrophy is seen. There is at least moderate left-sided and mild right-sided neural foraminal narrowing. No central canal narrowing is seen. These degenerative changes are worse than in 202. C7-T1: Mild loss of disc height is seen. Loss of disc signal is seen. A mild degree of generalized disc osteophyte complex is seen. Mild facet joint hypertrophy is seen. There is mild left-sided and no right-sided neural foraminal narrowing. No central canal narrowing is seen. These imaging findings have progressed compared to the prior study. IMPRESSION: Multiple levels of cervical spine degenerative change can be seen, which are clearly progressed compared to 2020. Dictated by: Duarte Gibson M.D. on 11/04/2024 at 16:32 Approved by: Duarte Gibson M.D. on 11/04/2024 at 16:40
== END ==
PROVIDERS: PCP Family Medicine; Referring Provider Physician Assistant; Visit Provider Physician Assistant
DX: G44.86 Cervicogenic headache (principal); M47.812 Spondylosis without myelopathy or radiculopathy, cervical region; M43.12 Spondylolisthesis, cervical region; R29.2 Abnormal reflex; F17.200 Nicotine dependence, unspecified, uncomplicated; Z98.890 Other specified postprocedural states
CPT/HCPCS: 72141; 72146

== ENCOUNTER → 2025-03-28 13:47 | Outpatient (CLI) | payer OTHER, SELFPAY ==
--- NOTE | 2025-03-28 13:48 | DI.US.S_ITS ---
PROCEDURE: US VENOUS INSUFFICIENCY BILAT INDICATIONS: swelling b/l, 30+yr smoking hx TECHNIQUE: Real time scanning was performed of the lower extremity venous system, with imaging documentation, as well as Color and pulse Doppler interrogation. COMPARISON: None. FINDINGS: RIGHT LOWER EXTREMITY: The deep veins are normally compressible, and free of intraluminal thrombus. Color and pulse Doppler demonstrate normal intravascular flow. There is normal augmentation with distal compression maneuver. Greater saphenous vein (GSV): Normally 4 mm or less in diameter, with any reflux less than 0.5 seconds. Saphenofemoral junction (SFJ): 5 mm. No reflux. Proximal GSV: 3 mm. No reflux. Mid GSV: 4 mm. No reflux. Distal GSV: 3 mm. No reflux. Calf GSV: 3 mm, and no reflux. Anterior accessory GSV (AAGSV): Anatomic variant not present across anterior thigh. Small saphenous vein (SSV): Posterior calf, draining into popliteal vein. Posterior calf: 4 mm. No reflux. Vein of Giacomini (posterior thigh connection between GSV and SSV): Anatomic variant not seen. LEFT LOWER EXTREMITY: The deep veins are normally compressible, and free of intraluminal thrombus. Color and pulse Doppler demonstrate normal intravascular flow. There is normal augmentation with distal compression maneuver. Greater saphenous vein (GSV): Normally 4 mm or less in diameter, with any reflux less than 0.5 seconds. Saphenofemoral junction (SFJ): 5 mm. No reflux. Proximal GSV: 4 mm. No reflux. Mid GSV: 2 mm. No reflux. Distal GSV: 2 mm. No reflux. Calf GSV: 1 mm. No reflux. Anterior accessory GSV (AAGSV): Anatomic variant not present across anterior thigh. Small saphenous vein (SSV): Posterior calf, draining into popliteal vein. Posterior calf: 4 mm. No reflux. Vein of Giacomini (posterior thigh connection between GSV and SSV): Anatomic variant not seen. IMPRESSION: No venous insufficiency bilaterally. Dictated by: Alan Lal M.D. on 03/28/2025 at 15:27 Approved by: Alan Lal M.D. on 03/28/2025 at 15:30
[2025-03-28 15:52] LABS: Add Manual Diff / Slide Review NO; Hematocrit 41.5 % (36-46); Hemoglobin 14.5 g/dL (12.0-16.0); Lymphocytes Absolute Auto 2100 /uL (1100-4500); Mean Corpuscular HGB Conc 35.0 % (30-36); Mean Corpuscular Hemoglobin 38.0 PG (26-34); Mean Corpuscular Volume 108.5 fL (80-100); Platelet Count 132 X10^3/uL (150-400)
[2025-03-28 16:16] LABS: Alanine Aminotransferase 23 IU/L (<35); Albumin 3.5 g/dL (3.5-5.0); Albumin Globulin Ratio 1.1 (1.0-2.8); Alkaline Phosphatase 176 U/L (38-126); Blood Urea Nitrogen 8 mg/dL (7-17); Calcium 9.1 mg/dL (8.4-10.2); Carbon Dioxide 22 mmol/L (22-32); Chloride 106 mmol/L (98-107); Estimated Glomerular Filt Rate > 60 mL/min (>60); Globulin 3.1 g/dL (1.7-4.1); Glucose 156 mg/dL (70-99); HEMOLYSIS < 15 (0-50); Potassium 3.9 mmol/L (3.4-5.1); Sodium 137 mmol/L (137-145); Total Protein 6.6 g/dL (6.3-8.2)
[2025-03-28 16:26] LABS: NT-proBNP (BNP-Adult 18+) 164 pg/mL (<125)
== END ==
LOC: US 13:48
PROVIDERS: PCP Family Medicine; Referring Provider Physician Assistant; Visit Provider Physician Assistant
DX: R60.0 Localized edema (principal)
CPT/HCPCS: 36415; 80053; 83880; 85025; 93970

== ENCOUNTER → 2025-05-05 15:03 | Outpatient (CLI) | payer OTHER, SELFPAY ==
--- NOTE | 2025-05-05 15:04 | DI.ECHO.S_ITS ---
[facility]+ [facility] : : [id number] : : [place] : : [id number] : : Phone: [phone] Echocardiogram Report + + :Name: SOSA ESPARZA Study Date: 05/05/2025 Height: 63 in : :Hospital ReadingLocation: Weight: 134 lb : : Gender: Female BSA: 1.6 m2 : :: 1975 Age: 50 yrs BP: 129/84 mmHg: :Reason For Study: LOWER EDEMA SWELLING : :Ordering Physician: HARPREET, : :ELIO Performed By: Jim Lind : :Referring: ELIO MULLINS : + + Interpretation Summary Normal sinus rhythm. Normal LV size and wall thickness; normal wall motion and LV systolic function. EF is 60-65%. Normal chamber sizes. No valve abnormalities. No prior echo available for comparison. Procedure: A two-dimensional transthoracic echocardiogram with color flow and Doppler was performed. The study quality was technically adequate. There is no prior echocardiogram noted for this patient. The patient was in a tachycardic rhythm during the exam. Left Ventricle: The left ventricle is normal in size. There is normal left ventricular wall thickness. There is no ventricular septal defect visualized. The ejection fraction is estimated to be 60-65%. There are no focal wall motion abnormalities. Diastolic parameters suggest a relaxation abnormality of the left ventricle, consistent with probable normal filling pressures. Right Ventricle: The right ventricle is normal in size and function. Atria: The left atrial size is normal. Right atrial size is normal. There is no Doppler evidence for an interatrial shunt. Mitral Valve: The mitral valve leaflets appear normal. There is no evidence of stenosis, fluttering, or prolapse. There is no mitral regurgitation noted. Aortic Valve: The aortic valve is trileaflet. The aortic valve opens well. No aortic regurgitation is present. Tricuspid Valve: The tricuspid valve leaflets are thin and pliable. There is trace tricuspid regurgitation. Pulmonic Valve: The pulmonic valve is not well seen, but is grossly normal. There is trace pulmonic regurgitation. Great Vessels: The aortic root is normal size. The dimensions of the ascending aorta are normal. The pulmonary artery is not well visualized, but is probably normal size. The IVC is of normal diameter and collapses greater than 50% with a sniff. This suggests a low right atrial pressure of 3 mm Hg. Pericardium/ Pleura There is no pericardial effusion. There is a trivial left-sided pleural effusion. MMode/2D Measurements & Calculations LVIDd: 4.0 cm LVOT diam: 2.0 cm LVIDs: 2.6 cm Ao root diam: 2.9 cm FS: 35.7 % asc Aorta Diam: 3.1 cm EPSS: 0.46 cm IVSd: 0.97 cm LVPWd: 0.91 cm LV epstein. diameter/BSA (cm/m^2): 2.4 LV sys. diameter/BSA (cm/m^2): 1.6 LA A2 area: 16.2 cm2 RA long axis: 4.2 cm LA A4 area: 17.8 cm2 RA area: 13.1 cm2 LA length (vol): 4.7 cm RA vol: 35.3 ml LA vol: 51.6 ml RA : 21.6 ml/m2 LA vol index: 31.6 ml/m2 IVC diam: 1.4 cm RVD1 (basal): 3.8 cm RVD2 (mid): 2.7 cm TAPSE: 2.6 cm Doppler Measurements & Calculations Ao V2 max: 150.8 cm/sec LVOT Max Sandor: 116.0 cm/sec Ao V2 mean: 97.3 cm/sec LV V1 max P.4 mmHg Ao max P.1 mmHg LV V1 VTI: 22.3 cm Ao mean P.5 mmHg LEROY(I,D): 2.6 cm2 Ao V2 VTI: 27.4 cm LEROY(V,D): 2.4 cm2 sev ratio: 0.81 LEROY indexed to BSA (cm^2/m^2): 1.6 MV E max sandor: 61.9 cm/sec TR max sandor: 250.6 cm/sec MV A max sandor: 94.1 cm/sec TR max P.1 mmHg MV E/A: 0.66 PA V2 max: 129.2 cm/sec Med Peak E' Sandor: 7.2 cm/sec PA V2 mean: 89.8 cm/sec E/E' med: 8.6 PA mean P.5 mmHg Lat Peak E' Sandor: 8.8 cm/sec PA pr(Accel): 29.3 mmHg E/E' lat: 7.1 E/e' average: 7.8 MV dec time: 0.17 sec SV(LVOT): 70.5 ml Electronically signed by: Manda De León M.D. on Reading Physician:05/05/2025 10:37 PM
== END ==
LOC: ECHO 15:03
PROVIDERS: PCP Family Medicine; Referring Provider Family Medicine; Visit Provider Family Medicine
DX: K76.6 Portal hypertension (principal); R60.0 Localized edema; R73.03 Prediabetes; R16.0 Hepatomegaly, not elsewhere classified; M79.89 Other specified soft tissue disorders
CPT/HCPCS: 93306